=== PATIENT | female | born 1930 | race Caucasian/White ===

== ENCOUNTER 2017-02-12 16:21 | Observation (INO) ==
[2017-02-12] MEDS ORDERED: Ipratropium/Albuterol Neb 3 ML IH ONE (16:37)
--- NOTE | 2017-02-12 16:39 | Emergency Department Note ---
Disposition Clinical Impression: Lung mass Congestive heart failure Qualifiers: Congestive heart failure type: unspecified congestive heart failure type Congestive heart failure chronicity: acute Qualified Code(s): I50.9 - Heart failure, unspecified Disposition: Admitted As Inpatient Condition: Good Referrals: Latoya Oh CNP [Primary Care Provider] - Forms: ED Satisfaction Letter Time of Disposition: 19:46 General Adult HPI - General Chief complaint: ED Shortness of Breath/Dyspnea Stated complaint: Feet are swelling Time Seen by Provider: 02/12/17 16:29 Source: patient Mode of arrival: private vehicle Limitations: no limitations Nursing Notes Reviewed: Yes Vital Signs Reviewed: Yes - History of Present Illness HPI Narrative: 86-year-old female with past medical history of COPD presents with chief complaint of worsening lower extremity edema and shortness of breath increased over her baseline over the last few days. She has history of mild pedal edema over the last month, but it has been significantly worse over the last few days and is worse on the left side as compared to the right. This is associated with fevers pain. Her cough is productive of white sputum which is her baseline. She has no associated fevers, headache, confusion, chest pain, abdominal pain, changes in urination or bowel movements, nausea or vomiting, rashes. No history of injury, recent illness or immobilization. No history of DVT or PE. She has a history of CVA and takes aspirin 81 mg daily. She admits to continued tobacco abuse and smokes 1.5 packs per day. She wears oxygen 3.5 L at home. Pain Scale: 7 - Related Data Allergies Allergy/AdvReac Type Severity Reaction Status Date / Time Penicillins Allergy Rash Verified 02/12/17 16:23 All systems ED: reviewed and negative except as stated. Past Medical History - Past Medical History Attestation: Yes The following information was validated with the patient. Source: patient Medical history: Reports: cancer, CHF, COPD, hypertension, TIA Psychiatric history: Reports: anxiety - Social History Smoking Status: Current every day smoker Alcohol use: Reports: none Drug use: Reports: none Physical Exam - Head Head exam: atraumatic, normocephalic, normal inspection - Eye Eye exam: Present: normal appearance, PERRL, EOMI - ENT ENT exam: normal exam, normal oropharynx, mucous membranes moist - Neck Neck exam: Present: normal inspection, full ROM, trachea midline - Chest Chest inspection: Present: normal inspection, symmetric chest wall rise - Respiratory Patient has diffuse wheezing with good air movement throughout. No respiratory distress. Cardiovascular Cardiovascular exam: Present: regular rate, normal rhythm, normal heart sounds - Abdominal Exam Abdominal exam: Present: soft, Non-Tender. Absent: tenderness, distention, guarding, rebound, rigidity - Extremities Exam There is diffuse pitting pedal edema bilaterally that is worse on the left than the right. There is diffuse tenderness to palpation of the skin with no definite calf tenderness bilaterally. - Back Exam Back exam: Present: normal inspection, full ROM. Absent: tenderness, CVA tenderness (R), CVA tenderness (L) - Neurological Exam Neurological exam: Present: alert, oriented X3, CN II-XII intact - Psychiatric Psychiatric exam: Present: normal affect, normal mood - Skin Skin exam: Present: warm, dry, intact, normal color - General Limitations: no limitations General appearance: alert, in distress Course - Reevaluation(s) Reevaluation #1: Patient with significant pedal edema and moderately elevated BNP. She was given 40 mg of IV Lasix here. She was also found to have lung mass concerning for malignancy. She will be admitted for further evaluation of possible congestive heart failure in the lung mass. Accepted by Dr. Velez. Time: 19:47 Vital Signs Temperature 99.7 F H 02/12/17 16:23 Pulse Rate 83 02/12/17 16:23 Respiratory Rate 18 02/12/17 16:23 Blood Pressure 127/61 02/12/17 16:23 O2 Sat by Pulse Oximetry 91 02/12/17 16:23 Temperature 99.7 F H 02/12/17 16:23 Pulse Rate 83 02/12/17 16:23 Respiratory Rate 18 02/12/17 17:59 Blood Pressure 127/61 02/12/17 16:23 O2 Sat by Pulse Oximetry 94 02/12/17 17:59 Oxygen Delivery Oxygen Delivery Room Air Medical Decision Making - Lab Data Result diagrams: 02/12/17 12:00 02/12/17 12:00 Lab Results 02/12/17 02/12/17 02/12/17 Range/Units 12:00 12:00 12:00 WBC 11.7 H (4.3-11.1) K/mcL RBC 4.79 (3.82-4.97) M/mcL Hgb 10.0 L (11.5-15.4) g/dL Hct 34.2 L (35.3-44.9) % MCV 71.4 L (83.0-100.0) fL MCH 20.9 L (28.0-33.3) pg MCHC 29.2 L (31.6-35.5) g/dL RDW 16.1 H (11.5-14.5) % Plt Count 417 H (140-400) K/mcL MPV 8.8 L (9.4-12.4) fL Immature Gran % 0.5 (0-4) % Seg Neutrophils % 74.5 % Lymphocytes % 7.8 % Monocytes % 10.1 % Eosinophils % 6.4 % Basophils % 0.7 % Neutrophils # 8.7 (1.6-8.9) K/mcL Lymphocytes # 0.9 (0.6-4.6) K/mcL Monocytes # 1.2 (0.0-1.3) K/mcL Eosinophils # 0.8 H (0.0-0.6) K/mcL Basophils # 0.1 (0.0-0.2) K/mcL Sodium 134 L (136-145) mEq/L Potassium 4.2 (3.5-4.5) mEq/L Chloride 99 (98-109) mEq/L Carbon Dioxide 27 (19-29) mEq/L BUN 13 (7-20) mg/dL Creatinine 1.07 (0.57-1.11) mg/dL Est GFR ( Amer) 59 L (> 60) Est GFR (Non-Af Amer) 49 L (> 60) BUN/Creatinine Ratio 12 (6-26) Glucose 120 H (70-99) mg/dL Calculated Osmolality 279 L (280-300) Calcium 9.0 (8.6-10.8) mg/dL Troponin I 0.02 (0-0.03) ng/mL B-Natriuretic Peptide (0-100) pg/mL Urine Color (Yellow) Urine Clarity (Clear) Urine pH (5.0-8.0) pH Units Ur Specific [place] (1.010-1.025) Urine Protein (Neg-Trace) mg/dL Urine Glucose (UA) (Normal) mg/dL Urine Ketones (Negative) mg/dL Urine Blood (Negative) Urine Nitrite (Negative) Urine Bilirubin (Negative) Urine Urobilinogen (Normal) mg/dL Ur Leukocyte Esterase (Negative) Urine Microscopic RBC (0-3) per hpf Urine Microscopic WBC (0-3) per hpf Ur Squamous Epith Cells (None-Few) per lpf Urine Bacteria (None-Few) per hpf Hyaline Casts (None-Few) per lpf Ur Culture Indicated? (NO) 02/12/17 02/12/17 Range/Units 12:00 17:43 WBC (4.3-11.1) K/mcL RBC (3.82-4.97) M/mcL Hgb (11.5-15.4) g/dL Hct (35.3-44.9) % MCV (83.0-100.0) fL MCH (28.0-33.3) pg MCHC (31.6-35.5) g/dL RDW (11.5-14.5) % Plt Count (140-400) K/mcL MPV (9.4-12.4) fL Immature Gran % (0-4) % Seg Neutrophils % % Lymphocytes % % Monocytes % % Eosinophils % % Basophils % % Neutrophils # (1.6-8.9) K/mcL Lymphocytes # (0.6-4.6) K/mcL Monocytes # (0.0-1.3) K/mcL Eosinophils # (0.0-0.6) K/mcL Basophils # (0.0-0.2) K/mcL Sodium (136-145) mEq/L Potassium (3.5-4.5) mEq/L Chloride (98-109) mEq/L Carbon Dioxide (19-29) mEq/L BUN (7-20) mg/dL Creatinine (0.57-1.11) mg/dL Est GFR ( Amer) (> 60) Est GFR (Non-Af Amer) (> 60) BUN/Creatinine Ratio (6-26) Glucose (70-99) mg/dL Calculated Osmolality (280-300) Calcium (8.6-10.8) mg/dL Troponin I (0-0.03) ng/mL B-Natriuretic Peptide 197 H (0-100) pg/mL Urine Color Yellow (Yellow) Urine Clarity Cloudy A (Clear) Urine pH 5.5 (5.0-8.0) pH Units Ur Specific [place] 1.021 (1.010-1.025) Urine Protein Trace (Neg-Trace) mg/dL Urine Glucose (UA) Normal (Normal) mg/dL Urine Ketones Trace H (Negative) mg/dL Urine Blood Negative (Negative) Urine Nitrite Negative (Negative) Urine Bilirubin Small H (Negative) Urine Urobilinogen Normal (Normal) mg/dL Ur Leukocyte Esterase Small H (Negative) Urine Microscopic RBC 0-3 (0-3) per hpf Urine Microscopic WBC 5-15 H (0-3) per hpf Ur Squamous Epith Cells Many H (None-Few) per lpf Urine Bacteria Moderate H (None-Few) per hpf Hyaline Casts Moderate H (None-Few) per lpf Ur Culture Indicated? YES A (NO) - EKG Data EKG #1 EKG attestation: Yes I reviewed and interpreted this EKG. EKG results narrative: EKG shows normal sinus rhythm at 81 with normal axis and intervals. No ST elevation or depression. No T-wave inversions. There is diffuse nonspecific T- wave flattening. No old EKG available for comparison. Attestation Statement - Attestation Attestation: I examined this patient and my medical decision-making was reviewed with the SAIL LAY OUT WORKER/PA/Advanced Practice Nurse/Resident Physician. I agree with the documented findings, disposition and treatment plan as described except to the extent set forth below.
[2017-02-12 17:11] LABS: Basophils # 0.1 K/mcL (0.0-0.2); Basophils % 0.7 %; Eosinophils # 0.8 K/mcL (0.0-0.6); Eosinophils % 6.4 %; Hematocrit 34.2 % (35.3-44.9); Immature Granulocytes % 0.5 % (0-4); Lymphocytes # 0.9 K/mcL (0.6-4.6); Lymphocytes % 7.8 %; Mean Corpuscular HGB Conc 29.2 g/dL (31.6-35.5); Mean Corpuscular Hemoglobin 20.9 pg (28.0-33.3); Mean Corpuscular Volume 71.4 fL (83.0-100.0); Mean Platelet Volume 8.8 fL (9.4-12.4); Monocytes # 1.2 K/mcL (0.0-1.3); Monocytes % 10.1 %; Neutrophils # 8.7 K/mcL (1.6-8.9); Platelet Count 417 K/mcL (140-400); Red Blood Count 4.79 M/mcL (3.82-4.97); Red Cell Distribution Width 16.1 % (11.5-14.5); Segmented Neutrophils % 74.5 %
[2017-02-12 17:21] LABS: Potassium 4.2 mEq/L (3.5-4.5)
[2017-02-12 18:00] LABS: Bilirubin,Urine Small (Negative); Blood,Urine Negative (Negative); Clarity,Urine Cloudy (Clear); Color,Urine Yellow (Yellow); Glucose,Urine (UA) Normal (Normal); Ketones,Urine Trace mg/dL (Negative); Leukocyte Esterase,Urine Small (Negative); Nitrite,Urine Negative (Negative); PH,Urine 5.5 pH Units (5.0-8.0); Protein,Urine Trace mg/dL (Neg-Trace); Specific Gravity,Urine 1.021 (1.010-1.025); Urobilinogen,Urine Normal (Normal)
[2017-02-12 18:12] LABS: Hyaline Casts,Urine Moderate per lpf (None-Few); Squamous Epithelial Cell,Urine Many per lpf (None-Few)
[2017-02-12 18:13] LABS: Bacteria,Urine Moderate per hpf (None-Few); RBC,Urine 0-3 per hpf (0-3)
[2017-02-12] MEDS ORDERED: Naloxone 0.4 MG/ML INJ IVP PRN (22:23)
[2017-02-12] MEDS ORDERED: *HR* OxyCODONE Immed Rel 5 MG TABLET PO PRN (22:23)
[2017-02-12] MEDS ORDERED: Ondansetron 4 MG/2 ML VIAL IVP PRN (22:23)
[2017-02-12] MEDS ORDERED: Acetaminophen 325 MG TABLET PO PRN (22:23)
[2017-02-12] MEDS ORDERED: Albuterol 2.5 MG/3 ML NEBULIZER IH PRN (22:25)
--- NOTE | 2017-02-12 23:27 | Internal Med History&Physical ---
<Andrew Lake - Last Filed: 02/12/17 23:32> Date of Encounter: 02/12/17 Time of Encounter: 23:23 Assessment and Plan (1) Lower extremity edema Current visit: Yes Status: Acute Patient presents with bilateral lower extremity edema. Appears equal on exam to me her ear noted that the left appeared greater than the right so lower extremity Doppler of the left lower extremity was performed and negative. Most likely related to right heart failure in the setting of severe COPD. Patient's respiratory status is stable this time. We will obtain echo. Strict I's and O' s, fluid restriction, daily weights. We will hold off on diuresis at this time. Qualifiers: Laterality: bilateral Qualified Code(s): R60.0 - Localized edema (2) Lung mass Current visit: Yes Status: Acute Found incidentally on chest x-ray and further characterized on CT scan as a left masslike consolidation concerning for necrotic lymphadenopathy versus perihilar mass. Given the patient's smoking history there is concern for primary malignancy of the lung. I discussed at length with the patient the findings of the CT scan and potential etiologies of findings including cancer, infectious, inflammatory disorders. I explained the risks and benefits of further workup including bronchoscopy and discussed that once we had a diagnosis patient was treated. Patient verbalized that she understood our discussion including the risks and benefits of the procedure and risks and benefits of ultimate diagnosis for treatment planning and the patient declined any further workup at this time. I also discussed CODE STATUS with the patient and she was adamant that she wanted to remain a full code at this time. (3) COPD (chronic obstructive pulmonary disease) Current visit: Yes Status: Acute Stable. No evidence of acute exacerbation. Continue home respiratory treatments Qualifiers: COPD type: unspecified COPD Qualified Code(s): J44.9 - Chronic obstructive pulmonary disease, unspecified (4) Hypertension Current visit: Yes Status: Acute Stable. Continue home medications. Qualifiers: Hypertension type: essential hypertension Qualified Code(s): I10 - Essential (primary) hypertension (5) Chronic pain Current visit: Yes Status: Acute Patient reports that this is due to "aneurysms" in her brain negative for headaches. No neurologic findings present. Continue oxycodone 5 mg 3 times a day when necessary Qualifiers: Chronic pain type: other chronic pain Qualified Code(s): G89.29 - Other chronic pain (6) Rheumatoid arthritis Current visit: Yes Status: Acute Patient reports history of rheumatoid arthritis and states that she takes prednisone 5 mg daily to help control her symptoms. Patient does have some pain in her hands but feels that this is at her baseline. Continue prednisone 5 mg daily. Qualifiers: Rheumatoid arthritis location: unspecified site Rheumatoid factor presence : unspecified presence Qualified Code(s): M06.9 - Rheumatoid arthritis, unspecified (7) DVT prophylaxis Current visit: Yes Status: Acute Heparin 5000 units subcutaneous twice a day Internal Medicine - H&P: HPI Chief complaint: Lower extremity swelling Admitted From: Emergency Dept Plans for Post Hospital Care: Home History of present illness: Ms. Conrad is a 86 year old female with history of COPD, rheumatoid arthritis presents with lower extremity swelling. Patient states is gradually worsened over the last several days. Patient said she has never had anything like this before. She denies chest pain. Patient states that she has shortness of breath but she has had shortness of breath for a long period of time due to her COPD and her shortness of breath is unchanged. Patient states she recently cut back her fluid intake has been urinating less. She denies fever, chills, abdominal pain, nausea, vomiting, diarrhea, dysuria. Past Med Surg Social Fam HX - Past Medical History Medical history: cancer, CHF, COPD, hypertension, TIA Psychiatric history: anxiety - Past Surgical History Surgical History: non-contributory - Social History Smoking Status: Current every day smoker Alcohol use: none Drug use: none - Family History Mother History Unknown: Yes Father Hx Family Cardiac Disorders: Yes ( from [place]) Internal Medicine - H&P: Meds Albuterol Neb [Proventil Neb] 2.5 mg IH TID PRN 02/12/17 [History] Albuterol Sulfate [Albuterol Inhaler] 2 puff IH Q4H PRN 02/12/17 [History] Aspirin Enteric Coated [Aspirin EC] 81 mg PO DAILY 02/12/17 [History] B Complex with Vitamin C [Melanie-Bee with C] 1 each PO DAILY 02/12/17 [History] Calcium/Magnesium [Calcium with Magnesium Tab] 1 each PO DAILY 02/12/17 [History ] Cyanocobalamin (Vitamin B-12) [Vitamin B-12] 100 mcg PO DAILY 02/12/17 [History] Diltiazem HCl [Diltiazem 24Hr Cd] 180 mg PO DAILY 02/12/17 [History] Fluticasone Propionate Nasal [Flonase] 50 mcg NS BID PRN 02/12/17 [History] Fluticasone/Salmeterol [Advair Hfa 115-21 Mcg Inhaler] 2 puff IH BID 02/12/17 [ History] Metoprolol [Lopressor] 25 mg PO BID 02/12/17 [History] Multivitamin [Multi-Day Vitamins] 1 each PO DAILY 02/12/17 [History] OxyCODONE Immed Rel [Roxicodone 5 MG] 5 mg PO Q8HR PRN 02/12/17 [History] Oxygen 3.5 l NS AD 02/12/17 [History] Simvastatin [Zocor] 20 mg PO HS 02/12/17 [History] predniSONE [PredniSONE] 5 mg PO DAILY 02/12/17 [History] Allergies Penicillins Allergy (Verified 02/12/17 16:23) Rash All Systems PM: A 10-system review of systems was performed and is negative for pertinent findings except as documented above in the HPI. - Constitutional Vitals: Temp Pulse Resp BP Pulse Ox 97.7 F 72 17 146/73 92 02/12/17 21:20 02/12/17 21:20 02/12/17 21:20 02/12/17 21:20 02/12/17 21:20 General appearance: Present: A&O X 3, pleasant, no acute distress - Head Head exam: Present: atraumatic, normal inspection, normocephalic - Eye Eye exam: Present: EOMI, PERRL - ENT ENT exam: Present: mucous membranes dry - Neck Neck exam general surgery: Present: supple. Absent: tenderness - Respiratory Respiratory exam: Present: wheezes (Rare end expiratory wheeze). Absent: rales , respiratory distress, rhonchi, tachypnea - Cardiovascular Cardiovascular exam: Present: RRR. Absent: gallop, rubs, systolic murmur - GI/Abdominal GI/Abdominal exam: Present: normal bowel sounds, soft. Absent: distended, tenderness - Extremities Exam Extremities exam: Present: pedal edema (2+ bilaterally), warm, radial pulses palpable and symetrical. Absent: tenderness - Neurological Exam Neurological exam: Present: alert, CN II-XII intact, oriented X3, no focal deficits - Psychiatric Psychiatric exam: Present: normal affect, normal mood - Skin Skin exam: Present: dry, intact, warm Internal Med - H&P Results - Labs CBC & Chem 7: 02/12/17 12:00 02/12/17 12:00 <Riki Buchanan - Last Filed: 02/13/17 00:25> Date of Encounter: 02/13/17 Internal Medicine - H&P: HPI History of present illness: Ms. Conrad is a 86 year old female All Systems PM: A 10-system review of systems was performed and is negative for pertinent findings except as documented above in the HPI. - Constitutional Vitals: Temp Pulse Resp BP Pulse Ox 98.1 F 85 16 132/66 93 02/12/17 23:55 02/12/17 23:55 02/12/17 23:55 02/12/17 23:55 02/12/17 23:55 Internal Med - H&P Results - Labs CBC & Chem 7: 02/12/17 12:00 02/12/17 12:00 - Attending Attestation I examined this patient and my medical decision-making was reviewed with Dr. Lake. I agree with the documented findings, disposition and treatment plan as described except to the extent set forth below. 86 yo CF who presented to ER with leg swelling in both legs and chronic shortness of breath was found to have abnormal CXR and found to have a new lung mass. Patient reports that she uses inhalers at home and does not want any further work up of her lung mass. On exam, bilateral diffuse expiratory wheezing. Not in any acute distress. Bilateral 2+ bilateral pitting pedal edema. Labs reviewed. CXR personally reviewed - tracheal shift to the right; mild left CP angle blunting CT chest personally reviewed - Mass in the left hilar region; Left pleural effusion A/P: 1. Leg swelling likely related to Cor pulmonale - ECHO. Diuresis. Likely discharge home tomorrow. Observation status for now. 2. New lung mass with concern for malignancy with her extensive smoking history - Pt. states that she does not want any work up. Will treat symptomatically. 3. COPD with mild exacerbation - Antibiotics. Continue steroids at current dose. Breathing treatments. 4. Rheumatoid arthritis 5. Essential HTN MICHEL Baca
[2017-02-13] MEDS ORDERED: Furosemide 40 MG/4 ML VIAL IVP ONE (00:26)
[2017-02-13 04:45] LABS: Basophils # 0.1 K/mcL (0.0-0.2); Basophils % 0.5 %; Eosinophils # 0.8 K/mcL (0.0-0.6); Eosinophils % 7.3 %; Hematocrit 32.6 % (35.3-44.9); Hemoglobin 9.7 g/dL (11.5-15.4); Immature Granulocytes % 0.5 % (0-4); Lymphocytes % 8.6 %; Mean Corpuscular HGB Conc 29.8 g/dL (31.6-35.5); Mean Corpuscular Hemoglobin 21.3 pg (28.0-33.3); Mean Corpuscular Volume 71.5 fL (83.0-100.0); Monocytes # 1.1 K/mcL (0.0-1.3); Monocytes % 9.7 %; Neutrophils # 8.1 K/mcL (1.6-8.9); Platelet Count 431 K/mcL (140-400); Red Blood Count 4.56 M/mcL (3.82-4.97); Red Cell Distribution Width 16.4 % (11.5-14.5); Segmented Neutrophils % 73.4 %
[2017-02-13 04:54] LABS: Calcium 9.3 mg/dL (8.6-10.8); Chol/HDL Ratio 2.3 (0-4.9); Magnesium 1.7 mg/dL (1.6-2.6); Potassium 3.7 mEq/L (3.5-4.5)
[2017-02-13] MEDS: *HR* Heparin 5,000 UNIT/ML VIAL SQ SCH ×2 (05:43→16:55)
[2017-02-13] MEDS ORDERED: Doxycycline 100 MG CAPSULE PO SCH (09:00)
[2017-02-13] MEDS: Aspirin Enteric Coated 81 MG Tablet PO SCH (09:29)
[2017-02-13] MEDS: Diltiazem CD (24hr) 180 MG CAPSULE PO SCH (09:30)
[2017-02-13] MEDS: predniSONE 5 MG TABLET PO SCH (09:30)
[2017-02-13] MEDS: Budesonide/Formoterol 160/4.5 MDI IH SCH ×2 (10:22→21:41)
--- NOTE | 2017-02-13 12:35 | Electrocardiograph Report ---
[address] [address] Test Date: 2017-02-12 Pat Name: Patricia Conrad Department: 102 Room: 2A33 Gender: F Car Salter: Nena : 1930 Requested By: Chino Mcdonough Order Number: [id number] Reading MD: Marilyn Herrera Measurements Intervals Goff Rate: 81 P: 69 MA: 183 QRS: 0 QRSD: 90 T: 11 QT: 356 QTc: 393 Interpretive Statements SINUS RHYTHM LOW QRS VOLTAGE IN EXTREMITY LEADS [QRS DEFLECTION < 0.5 mV IN LIMB LEADS] SEPTAL MYOCARDIAL INFARCTION [40+ ms Q WAVE IN V1/V2], PROBABLY OLD Electronically Signed On 02-13-2017 12:34:00 EDT by Marilyn Herrera
[2017-02-13] MEDS ORDERED: *HR* OxyCODONE Immed Rel 5 MG TABLET PO PRN (14:47)
--- NOTE | 2017-02-13 16:02 | Internal Med Progress Note ---
Date of Encounter: 02/13/17 Time of Encounter: 16:00 - Assessment and plan (1) UTI (urinary tract infection) Current Visit: Yes Status: Acute Assessment and plan: Will start Ceftriaxone 1gm IV qd treat for symptomatic UTI for total of 3-5 days depending on clinical response Qualifiers: Urinary tract infection type: acute cystitis Hematuria presence: without hematuria Qualified Code(s): N30.00 - Acute cystitis without hematuria (2) Congestive heart failure Current Visit: Yes Status: Acute Assessment and plan: 2D echo reports of LVEF of 60-65% with mild LV diastolic dysfunction, mild LVH, mild to moderate aortic regurgitation continue IV diuretics monitor daily weight, I/Os fluid restricted diet O2 supplementation as needed Qualifiers: Congestive heart failure type: diastolic Congestive heart failure chronicity: acute Qualified Code(s): I50.31 - Acute diastolic (congestive) heart failure (3) Lung mass Current Visit: Yes Status: Acute Assessment and plan: Patient does not want any further work up at this time she states she is 86 years of age and just want her breathing to improve along with her Lower extremity edema patient willing to quit smoking at this time refused nicotine replacement therapy (4) Lower extremity edema Current Visit: Yes Status: Acute Assessment and plan: LLE venous doppler negative for DVT Qualifiers: Laterality: bilateral Qualified Code(s): R60.0 - Localized edema (5) COPD (chronic obstructive pulmonary disease) Current Visit: Yes Status: Chronic Assessment and plan: not in acute exacerbation continue home meds monitor O2 sat O2 supplementation as needed Qualifiers: COPD type: unspecified COPD Qualified Code(s): J44.9 - Chronic obstructive pulmonary disease, unspecified (6) Hypertension Current Visit: Yes Status: Acute Assessment and plan: BP within acceptable range continue home meds Qualifiers: Hypertension type: essential hypertension Qualified Code(s): I10 - Essential (primary) hypertension (7) DVT prophylaxis Current Visit: Yes Status: Acute Assessment and plan: Heparin SQ - Subjective Interval history: Patient seen and examined at bedside. Resting in bed and reports of mild discomfort with her breathing which is improved since her admission. Also reports of difficulty urinating. complains of increased urinary frequency and urgency. UA concerning for UTI, however given current presentation, will place samayoa cath. Patient states she does not want any further work up for her CXR findings. Willing to quit smoking after discharge. Appoints her niece as her POA. - Constitutional Vitals: Temp Pulse Resp BP Pulse Ox 98.4 F 74 16 132/69 97 02/13/17 11:56 02/13/17 11:56 02/13/17 11:56 02/13/17 11:56 02/13/17 11:56 General appearance: Present: A&O X 3, pleasant, no acute distress - Head Head exam: Present: atraumatic, normocephalic - Eye Eye exam: Present: normal appearance, conjuntiva pink, sclera anicteric - Respiratory Respiratory exam: Absent: respiratory distress Additional comments: bibasilar crackles - Cardiovascular Cardiovascular exam: Present: RRR, +S1, +S2. Absent: diastolic murmur, gallop, rubs, systolic murmur - GI/Abdominal GI/Abdominal exam: Present: normal bowel sounds, soft, no peritoneal signs. Absent: distended, tenderness - Extremities Exam Extremities exam: Present: warm, radial pulses palpable and symetrical Additional comments: LLE tenderness and bilateral LE edema - Neurological Exam Neurological exam: Present: alert, oriented X3 - Psychiatric Psychiatric exam: Present: normal affect, normal mood Internal Medicine: Result - Labs CBC & Chem 7: 02/13/17 03:46 02/13/17 03:46 Labs: Short CBC 02/13/17 Range/Units 03:46 WBC 11.0 (4.3-11.1) K/mcL Hgb 9.7 L (11.5-15.4) g/dL Hct 32.6 L (35.3-44.9) % Plt Count 431 H (140-400) K/mcL Neutrophils # 8.1 (1.6-8.9) K/mcL BMP 02/13/17 03:46 Sodium 135 L Potassium 3.7 Chloride 98 Carbon Dioxide 29 BUN 11 Creatinine 1.07 Glucose 123 H Calcium 9.3 - VTE Documentation of Mechanical Device: Graduated compression elastic hosiery Consult Discharge Plan - Plan Referrals: Latoya Oh CNP [Primary Care Provider] - (Web Requested 02-12-17)
[2017-02-13] MEDS: Furosemide 40 MG/4 ML VIAL IVP SCH (16:54)
[2017-02-14 03:27] LABS: Basophils % 0.3 %; Eosinophils # 0.4 K/mcL (0.0-0.6); Eosinophils % 3.8 %; Hematocrit 35.5 % (35.3-44.9); Hemoglobin 10.6 g/dL (11.5-15.4); Immature Granulocytes % 0.4 % (0-4); Lymphocytes # 1.2 K/mcL (0.6-4.6); Lymphocytes % 10.5 %; Mean Corpuscular HGB Conc 29.9 g/dL (31.6-35.5); Mean Corpuscular Hemoglobin 21.3 pg (28.0-33.3); Mean Corpuscular Volume 71.4 fL (83.0-100.0); Mean Platelet Volume 9.3 fL (9.4-12.4); Monocytes # 1.1 K/mcL (0.0-1.3); Monocytes % 9.4 %; Neutrophils # 8.7 K/mcL (1.6-8.9); Platelet Count 460 K/mcL (140-400); Red Blood Count 4.97 M/mcL (3.82-4.97); Red Cell Distribution Width 16.1 % (11.5-14.5); Segmented Neutrophils % 75.6 %
[2017-02-14 03:37] LABS: Calcium 9.6 mg/dL (8.6-10.8); Magnesium 1.9 mg/dL (1.6-2.6); Phosphorous 2.7 mg/dL (2.3-4.7); Potassium 3.5 mEq/L (3.5-4.5)
[2017-02-14] MEDS: *HR* Heparin 5,000 UNIT/ML VIAL SQ SCH ×2 (04:45→16:47)
[2017-02-14] MEDS: predniSONE 5 MG TABLET PO SCH (07:41)
[2017-02-14] MEDS: Aspirin Enteric Coated 81 MG Tablet PO SCH (07:41)
[2017-02-14] MEDS: Diltiazem CD (24hr) 180 MG CAPSULE PO SCH (07:41)
[2017-02-14] MEDS: Furosemide 40 MG/4 ML VIAL IVP SCH (07:44)
[2017-02-14] MEDS: Budesonide/Formoterol 160/4.5 MDI IH SCH (08:06)
--- NOTE | 2017-02-14 10:07 | Discharge Summary ---
Date of Encounter: 02/14/17 Time of Encounter: 10:05 - Discharge Diagnosis (1) UTI (urinary tract infection) Priority: Primary Status: Acute Qualifiers: Urinary tract infection type: acute cystitis Hematuria presence: without hematuria Qualified Code(s): N30.00 - Acute cystitis without hematuria (2) Congestive heart failure Priority: Primary Status: Acute Qualifiers: Congestive heart failure type: diastolic Congestive heart failure chronicity: acute Qualified Code(s): I50.31 - Acute diastolic (congestive) heart failure (3) Lung mass Priority: Secondary Status: Acute (4) Lower extremity edema Priority: Primary Status: Acute Qualifiers: Laterality: bilateral Qualified Code(s): R60.0 - Localized edema (5) COPD (chronic obstructive pulmonary disease) Priority: Secondary Status: Chronic Qualifiers: COPD type: unspecified COPD Qualified Code(s): J44.9 - Chronic obstructive pulmonary disease, unspecified (6) Hypertension Priority: Secondary Status: Chronic Qualifiers: Hypertension type: essential hypertension Qualified Code(s): I10 - Essential (primary) hypertension (7) DVT prophylaxis Priority: Secondary Status: Acute (8) Atrial fibrillation Priority: Secondary Status: Acute Qualifiers: Atrial fibrillation type: unspecified Qualified Code(s): I48.91 - Unspecified atrial fibrillation - Discharge Medications Prescriptions: Ciprofloxacin/Ciprofloxa HCl [Cipro Xr 500 mg Tablet] 500 mg PO DAILY #1 tbmp.24hr Ferrous Sulfate 325 mg PO DAILY@0800 #30 tablet Furosemide [Lasix] 40 mg PO BIDDIURETIC #60 tablet Sennosides/Docusate Sodium [Senna Plus] 2 each PO BID PRN #30 tablet PRN Reason: Constipation Home Medications: Albuterol Neb [Proventil Neb] 2.5 mg IH TID PRN 02/12/17 [History] Albuterol Sulfate [Albuterol Inhaler] 2 puff IH Q4H PRN 02/12/17 [History] Aspirin Enteric Coated [Aspirin EC] 81 mg PO DAILY 02/12/17 [History] B Complex with Vitamin C [Melanie-Bee with C] 1 each PO DAILY 02/12/17 [History] Calcium/Magnesium [Calcium with Magnesium Tab] 1 each PO DAILY 02/12/17 [History ] Cyanocobalamin (Vitamin B-12) [Vitamin B-12] 100 mcg PO DAILY 02/12/17 [History] Diltiazem HCl [Diltiazem 24Hr Cd] 180 mg PO DAILY 02/12/17 [History] Fluticasone Propionate Nasal [Flonase] 50 mcg NS BID PRN 02/12/17 [History] Fluticasone/Salmeterol [Advair Hfa 115-21 Mcg Inhaler] 2 puff IH BID 02/12/17 [ History] Metoprolol [Lopressor] 25 mg PO BID 02/12/17 [History] Multivitamin [Multi-Day Vitamins] 1 each PO DAILY 02/12/17 [History] OxyCODONE Immed Rel [Roxicodone 5 MG] 5 mg PO Q8HR PRN 02/12/17 [History] Oxygen 3.5 l NS AD 02/12/17 [History] Simvastatin [Zocor] 20 mg PO HS 02/12/17 [History] predniSONE [PredniSONE] 5 mg PO DAILY 02/12/17 [History] Ciprofloxacin/Ciprofloxa HCl [Cipro Xr 500 mg Tablet] 500 mg PO DAILY #1 tbmp.24hr 02/14/17 [Rx] Ferrous Sulfate 325 mg PO DAILY@0800 #30 tablet 02/14/17 [Rx] Furosemide [Lasix] 40 mg PO BIDDIURETIC #60 tablet 02/14/17 [Rx] Sennosides/Docusate Sodium [Senna Plus] 2 each PO BID PRN #30 tablet 02/14/17 [ Rx] Allergies/Adverse Reactions: Allergies Penicillins Allergy (Verified 02/12/17 16:23) Rash Procedures/tests Complete & Pending: Procedures Performed prior 72 hours Category Date Time Status ECG 12 lead ECG [ECG] Routine Y 02/14/17 05:11 Completed EV echocardiogram Routine Y 02/13/17 22:25 Completed Date of admission: 02/12/17 20:06 Primary care physician: Latoya Oh CNP Consults: 02/13/17 10:04 Consult to Physical Therapy [CONS] Routine Comment: Evaluate, develop and implement POC Reason for Consult: possible need for therapy 02/13/17 11:09 Consult to Occupational Therapy [CONS] Routine Comment: Evaluate, develop and implement POC Reason for Consult: possible home health needs Discharging clinician: Zenobia Biswas Anticipated date of discharge: 02/14/17 - Patient Status Disposition: Home Health Service Condition: Good Functional capacity at discharge: uses cane/walker Overall status at discharge: patient is back to baseline - Discharge Instructions Follow Up With: Latoya Oh CNP [Primary Care Provider] - (Web Requested 02-12-17) Additional Instructions: Please follow up with your primary care physician within five days after your discharge from the hospital. Please follow up with quick print operator within one to two weeks after your discharge from the hospital. Lasix 40mg twice a day has been added to your home meds, please inform your primary care physician of this change. You were found to have iron deficiency anemia due to which Ferrous sulfate ( iron supplement) has been added to your home meds Continue Aspirin, Metoprolol, and Cardizem in addition to all your other home medications as prescribed by your primary care physician. continue oral antibiotics for one more day as prescribed. Smoking cessation is highly advised - Diet and Activity Activity: as per physical therapy, wear oxygen at all times Diet: low salt diet Hospital course: Ms. Conrad is a 86 year old female with PMH of COPD on LTOT, HTN, Afib, RA who was admitted for management of worsening lower extremity edema bilaterally. Pt is a poor historian and unclear of her medical history. She is compliant with her home meds and states her niece and nephew take care of her. She was started on IV diuretics and had a 2D echo done which reported presereved ejection fraction mild diastolic dysfunction. Patient's LE edema and respiratory status improved with lasix. Pt was also reported to have a perihilar mass concerning for malignancy. Pt refused any further work up for this mass. She was also noted to be in rate control afib which was a change from her initial admission EKG. Given her CHADVASC score cardiology was consulted for anticoagulation. Given her age/frail clinical status and concern for malignancy, she is not a candidate for intermediate teacher anticoagulation. She is already on Metoprolol, Aspirin, and Cardizem. It appears that patient may already have history of afib and does not know about it. She also reported of dysuria and was started on IV abx to which she responded appropriately. Physical therapy evaluated the patient and home health was recommended. Pt will be discharged to home with PO lasix, oral abx, and iron supplements as she was found to have iron def anemia. Pt demonstrates understanding of her diagnosis and agrees with the discharge care and plan. - Time Spent with Patient Total time spent providing and/or coordinating discharge services: Greater than 30 minutes - Constitutional Vitals: Temp Pulse Resp BP Pulse Ox 97.7 F 78 20 130/73 91 02/14/17 06:42 02/14/17 06:42 02/14/17 08:10 02/14/17 06:42 02/14/17 08:10 General appearance: Present: A&O X 3, pleasant, no acute distress - Head Head exam: Present: atraumatic, normocephalic - Eye Eye exam: Present: normal appearance, conjuntiva pink, sclera anicteric - Respiratory Respiratory exam: Absent: respiratory distress, wheezes - Cardiovascular Cardiovascular exam: Present: RRR, +S1, +S2. Absent: diastolic murmur, gallop, rubs, systolic murmur - GI/Abdominal GI/Abdominal exam: Present: normal bowel sounds, soft, no peritoneal signs. Absent: distended, tenderness - Extremities Exam Extremities exam: Present: pedal edema (bilateral pitting edema), warm, radial pulses palpable and symetrical. Absent: calf tenderness - Neurological Exam Neurological exam: Present: alert, oriented X3 - Psychiatric Psychiatric exam: Present: normal affect, normal mood - VTE Documentation of Mechanical Device: Graduated compression elastic hosiery
--- NOTE | 2017-02-14 12:48 | Cardiology Consult Note ---
Date of Encounter: 02/14/17 Time of Encounter: 12:44 Assessment and Plan (1) Atrial fibrillation Current Visit: Yes Status: Acute Sinus rhythm on ER ECG, but appears to be AF currently. Patient asymptomatic. Patient has lung mass with lymphadenopathy on chest CT. Declining further evaluation and possible metastatic workup if malignancy. Although CHADS-VASc score is elevation, she is not a good coumadin candidate due to these issues. Recommend continue aspirin and BB therapy. Patient understands and is agreeable to this plan. Followup with me in the clinic. Thanks, Neo Lawson DO, [facility] Qualifiers: Atrial fibrillation type: paroxysmal Qualified Code(s): I48.0 - Paroxysmal atrial fibrillation Discussion w patient/family: The assessment and plan as outlined above was discussed with the patient and/or family members who expressed understanding and agreement. All questions were answered. Thank you for involving us in the care of your patient. Please call with any questions. History of Present Illness Consult date: 02/14/17 Requesting physician: Zenobia Biswas Consult reason: AF Chief complaint: LE edema History of present illness: Ms. Conrad is a 86 year old female shelter smoker, COPD. Lung mass per imaging results - patient declining evaluation. LE edema better. Consultation requesting regarding AF noted on monitor. New diagnosis - no palpitations, near syncope, or syncope. CHADS-VASc (HTN, AGE, FM) elevated. TTE LVEF 60-65%, mild LVH, mild DD, mild to moderate AR. Past Med Surg Social Fam HX - Past Medical History Medical history: cancer, CHF, COPD, hypertension, TIA Psychiatric history: anxiety - Past Surgical History Surgical History: non-contributory - Social History Smoking Status: Current every day smoker Alcohol use: none Drug use: none - Family History Mother History Unknown: Yes Father Hx Family Cardiac Disorders: Yes ( from [place]) Medications and Allergies Albuterol Neb [Proventil Neb] 2.5 mg IH TID PRN 02/12/17 [History] Albuterol Sulfate [Albuterol Inhaler] 2 puff IH Q4H PRN 02/12/17 [History] Aspirin Enteric Coated [Aspirin EC] 81 mg PO DAILY 02/12/17 [History] B Complex with Vitamin C [Melanie-Bee with C] 1 each PO DAILY 02/12/17 [History] Calcium/Magnesium [Calcium with Magnesium Tab] 1 each PO DAILY 02/12/17 [History ] Cyanocobalamin (Vitamin B-12) [Vitamin B-12] 100 mcg PO DAILY 02/12/17 [History] Diltiazem HCl [Diltiazem 24Hr Cd] 180 mg PO DAILY 02/12/17 [History] Fluticasone Propionate Nasal [Flonase] 50 mcg NS BID PRN 02/12/17 [History] Fluticasone/Salmeterol [Advair Hfa 115-21 Mcg Inhaler] 2 puff IH BID 02/12/17 [ History] Metoprolol [Lopressor] 25 mg PO BID 02/12/17 [History] Multivitamin [Multi-Day Vitamins] 1 each PO DAILY 02/12/17 [History] OxyCODONE Immed Rel [Roxicodone 5 MG] 5 mg PO Q8HR PRN 02/12/17 [History] Oxygen 3.5 l NS AD 02/12/17 [History] Simvastatin [Zocor] 20 mg PO HS 02/12/17 [History] predniSONE [PredniSONE] 5 mg PO DAILY 02/12/17 [History] Ciprofloxacin/Ciprofloxa HCl [Cipro Xr 500 mg Tablet] 500 mg PO DAILY #1 tbmp.24hr 02/14/17 [Rx] Ferrous Sulfate 325 mg PO DAILY@0800 #30 tablet 02/14/17 [Rx] Furosemide [Lasix] 40 mg PO BIDDIURETIC #60 tablet 02/14/17 [Rx] Allergies Penicillins Allergy (Verified 02/12/17 16:23) Rash All Systems Review: A 10-system review of systems was performed and is negative for pertinent findings except as documented above in the HPI. - Cardiovascular Cardiovascular: as per HPI Physical Examination Vital Signs, Last 4 Hours Temp Pulse Resp BP Pulse Ox 02/14/17 10:40 97.7 F 69 14 117/56 95 02/14/17 09:54 20 91 General: Conversant, No Apparent Distress HEENT: Atraumatic, Mucus Membranes Moist Neck: No JVD Cardiac: Other (Irregular rate and rhythm, no murmurs appreciated) Lungs: Other (Scattered rhonchi, wheezing) Neuro: Alert and responsive, No focal deficits noted Abdomen: Soft, Non-Tender Skin: No rashes noted on visualized skin Musculoskeletal: No Chest Wall Tenderness Extremities: No Clubbing, No Cyanosis, Other (Minimal edema) Results 02/14/17 03:13 02/14/17 03:13 Lab Results 02/14/17 02/14/17 03:13 03:13 WBC 11.5 H Hgb 10.6 L Hct 35.5 Plt Count 460 H Sodium 137 Potassium 3.5 Chloride 95 L Carbon Dioxide 32 H BUN 12 Creatinine 1.07 Glucose 106 H Calcium 9.6 Magnesium 1.9 - Imaging and Cardiology Echo: report reviewed - EKG Interpretation EKG results cardiology: personally reviewed Consult Discharge Plan - Plan Referrals: Latoya Oh, VINNY [Primary Care Provider] - (Web Requested 02-12-17) Prescriptions: Ciprofloxacin/Ciprofloxa HCl [Cipro Xr 500 mg Tablet] 500 mg PO DAILY #1 tbmp.24hr Ferrous Sulfate 325 mg PO DAILY@0800 #30 tablet Furosemide [Lasix] 40 mg PO BIDDIURETIC #60 tablet
--- NOTE | 2017-02-14 14:08 | Physician Discharge Referral ---
Home Health/Hosp Referral Info Transfer to: Home Health Provider in Charge Post Discharge: PCP - Diagnosis (1) UTI (urinary tract infection) Priority: Secondary Status: Acute (2) Congestive heart failure Priority: Primary Status: Acute (3) Lung mass Priority: Secondary Status: Acute (4) Lower extremity edema Priority: Primary Status: Acute (5) COPD (chronic obstructive pulmonary disease) Priority: Secondary Status: Chronic (6) Hypertension Priority: Secondary Status: Chronic (7) DVT prophylaxis Priority: Secondary Status: Acute (8) Atrial fibrillation Priority: Secondary Status: Chronic - Respiratory Orders Smoking Cessation: Smoking cessation has been advised. For more information, call the [place] Tobacco Quit Line at 0-153-AOUX-NOW. - Services Needed Following services are medically necessary services: Nursing, Home Health Aide, Physical Therapy, Occupational Therapy - Transfer Medications Prescriptions: Ciprofloxacin/Ciprofloxa HCl [Cipro Xr 500 mg Tablet] 500 mg PO DAILY #1 tbmp.24hr Ferrous Sulfate 325 mg PO DAILY@0800 #30 tablet Furosemide [Lasix] 40 mg PO BIDDIURETIC #60 tablet Sennosides/Docusate Sodium [Senna Plus] 2 each PO BID PRN #30 tablet PRN Reason: Constipation Home Medications: Albuterol Neb [Proventil Neb] 2.5 mg IH TID PRN 02/12/17 [History] Albuterol Sulfate [Albuterol Inhaler] 2 puff IH Q4H PRN 02/12/17 [History] Aspirin Enteric Coated [Aspirin EC] 81 mg PO DAILY 02/12/17 [History] B Complex with Vitamin C [Melanie-Bee with C] 1 each PO DAILY 02/12/17 [History] Calcium/Magnesium [Calcium with Magnesium Tab] 1 each PO DAILY 02/12/17 [History ] Cyanocobalamin (Vitamin B-12) [Vitamin B-12] 100 mcg PO DAILY 02/12/17 [History] Diltiazem HCl [Diltiazem 24Hr Cd] 180 mg PO DAILY 02/12/17 [History] Fluticasone Propionate Nasal [Flonase] 50 mcg NS BID PRN 02/12/17 [History] Fluticasone/Salmeterol [Advair Hfa 115-21 Mcg Inhaler] 2 puff IH BID 02/12/17 [ History] Metoprolol [Lopressor] 25 mg PO BID 02/12/17 [History] Multivitamin [Multi-Day Vitamins] 1 each PO DAILY 02/12/17 [History] OxyCODONE Immed Rel [Roxicodone 5 MG] 5 mg PO Q8HR PRN 02/12/17 [History] Oxygen 3.5 l NS AD 02/12/17 [History] Simvastatin [Zocor] 20 mg PO HS 02/12/17 [History] predniSONE [PredniSONE] 5 mg PO DAILY 02/12/17 [History] Ciprofloxacin/Ciprofloxa HCl [Cipro Xr 500 mg Tablet] 500 mg PO DAILY #1 tbmp.24hr 02/14/17 [Rx] Ferrous Sulfate 325 mg PO DAILY@0800 #30 tablet 02/14/17 [Rx] Furosemide [Lasix] 40 mg PO BIDDIURETIC #60 tablet 02/14/17 [Rx] Sennosides/Docusate Sodium [Senna Plus] 2 each PO BID PRN #30 tablet 02/14/17 [ Rx] Allergies/Adverse Reactions: Allergies Penicillins Allergy (Verified 02/12/17 16:23) Rash Certification: Further, I certify that my clinical findings support that this patient is homebound (i.e. absences from home require considerable and taxing effort and are for medical reasons or quaker services or infrequently or short duration when for other reasons) because: Homebound Reason: Patient requires assistance of a person or device to safely leave home Attestation: My signature below is to certify that this patient is under my care and that I, or nurse practitioner, or a physician's family medicine physician assistant working with me, has a face-to -face encounter with this patient.
[2017-02-14 16:42] VITALS: BP 132/73
[2017-02-14] MEDS ORDERED: Furosemide 40 MG TABLET PO SCH (17:00)
--- NOTE | 2017-02-15 09:20 | Venous Imaging Report ---
LE Venous Duplex Patient Name:Patricia Conrad Order Number:[id number] Procedure Date:02/12/2017 Date:2Age:86 yrs Gender:Female Location:[facility] Room #: 2A33 Spinner Hand:Penine Herndon Referring MD:Chino Mcdonough DO station mechanic apprentice:Latoya Oh, PRECISION ASSEMBLER Reading MD:Sylvester Osman MD Primary Indications:Swelling Secondary Indications: Impressions: Left lower extremity: normal superficial and deep exam. Findings Prior Study: No prior study available for comparison. Lower Extremity Venous Duplex Side Vein Compress Spontaneous Flow Augment Diameter (cm) Depth (cm) Left Distal Iliac Normal Yes Phasic Yes Left Common Femoral Normal Yes Phasic Yes Left Superficial Femoral Normal Yes Phasic Yes Left Popliteal Normal Yes Phasic Yes Left Posterior Tibial Normal Yes Phasic Yes Left Peroneal Normal Yes Phasic Yes Left Saphenofemoral [place] Normal Yes Phasic Yes Left Great Saphenous Normal Yes Phasic Yes Left Lesser Saphenous Normal Yes Phasic Yes Right Common Femoral Normal Yes Phasic Yes Updated by Sylvester Osman MD on 02/15/2017 9:16:51 AM electronically signed on 02/15/2017 9:17:13 AM with status of Final
--- NOTE | 2017-02-15 12:49 | Electrocardiograph Report ---
[place] [id number] Test Date: 2017-02-14 Pat Name: Patricia Conrad Department: 112 Room: 2A Gender: F Vegetable Farm Manager: : 1930 Requested By: Zenobia Biswas Order Number: [id number] Reading MD: Andrew Boyle MD Measurements Intervals [place] Rate: 69 P: RI: 0 QRS: 25 QRSD: 110 T: -5 QT: 424 QTc: 444 Interpretive Statements ATRIAL FIBRILLATION LOW QRS VOLTAGE IN EXTREMITY LEADS Electronically Signed On 02-15-2017 12:47:42 EDT by Andrew Boyle MD
--- NOTE | 2017-02-17 06:50 | Electrocardiograph Report ---
[address] [place] [address] Test Date: 2017-02-14 Pat Name: Patricia Conrad Department: 112 Room: 2A Gender: F Cement Finisher Helper: : 1930 Requested By: Neo Lawson Order Number: [id number] Reading MD: Harrison Hermosillo MD Measurements Intervals [place] Rate: 66 P: [place]: 0 QRS: -3 QRSD: 105 T: -22 QT: 434 QTc: 447 Interpretive Statements ATRIAL FIBRILLATION Electronically Signed On 02-17-2017 6:48:58 EDT by Harrison Hermosillo MD
== END 2017-02-14 17:23 | disposition home health service (06) ==
LOC: EMEROO 16:21 → 2ANU 16:21
PROVIDERS: ADMIT Internal Medicine; ATTEND Internal Medicine

== ENCOUNTER 2018-03-10 15:37 | Observation (INO) ==
[2018-03-10] MEDS ORDERED: *HR* FentaNYL (PF) 100 MCG/2 ML VIAL IVP ONE ×3 (16:15→18:30)
[2018-03-10] MEDS ORDERED: Metoclopramide 10 MG/2 ML VIAL IVP ONE (16:15)
[2018-03-10] MEDS ORDERED: Isovue-370 500 ML INFUS..BTL IV ONE (16:20)
--- NOTE | 2018-03-10 16:26 | Emergency Department Note ---
Disposition Clinical Impression: Atrial fibrillation with RVR, Compression fracture, Intractable pain Disposition: Admitted As Inpatient Condition: Fair Referrals: Boubacar Godoy MD [Primary Care Provider] - Forms: ED Satisfaction Letter Time of Disposition: 18:35 General Adult HPI - General Chief complaint: ED Back Pain/Injury Stated complaint: slid off a toilet Time Seen by Provider: 03/10/18 16:03 Source: patient, EMS Limitations: no limitations - History of Present Illness HPI Narrative: This is an 88-year-old female who lives independently at home. She states that she slid off the toilet and landed on the ground. She is complaining of some pain in the lumbar sacral area but she is also having abdominal pain that is occurring before this fall. She states it is going on over 2-3 days. This patient is a poor historian. Pain Scale: 10 - Related Data Home Medications Medication Instructions Recorded Confirmed Albuterol Neb [Proventil Neb] 2.5 mg IH TID PRN 02/12/17 02/12/17 Albuterol Sulfate [Albuterol 2 puff IH Q4H PRN 02/12/17 02/12/17 Inhaler] Aspirin Enteric Coated [Aspirin EC] 81 mg PO DAILY 02/12/17 02/12/17 B Complex with Vitamin C [Melanie-Bee 1 each PO DAILY 02/12/17 02/12/17 with C] Calcium/Magnesium [Calcium with 1 each PO DAILY 02/12/17 02/12/17 Magnesium Tab] Cyanocobalamin (Vitamin B-12) 100 mcg PO DAILY 02/12/17 02/12/17 [Vitamin B-12] Diltiazem HCl [Diltiazem 24Hr Cd] 180 mg PO DAILY 02/12/17 02/12/17 Fluticasone Propionate Nasal 50 mcg NS BID PRN 02/12/17 02/12/17 [Flonase] Fluticasone/Salmeterol [Advair Hfa 2 puff IH BID 02/12/17 02/12/17 115-21 Mcg Inhaler] Metoprolol [Lopressor] 25 mg PO BID 02/12/17 02/12/17 Multivitamin [Multi-Day Vitamins] 1 each PO DAILY 02/12/17 02/12/17 OxyCODONE Immed Rel [Roxicodone 5 5 mg PO Q8HR PRN 02/12/17 02/12/17 MG] Oxygen 3.5 l NS AD 02/12/17 02/12/17 Simvastatin [Zocor] 20 mg PO HS 02/12/17 02/12/17 predniSONE [PredniSONE] 5 mg PO DAILY 02/12/17 02/12/17 Previous Rx's Medication Instructions Recorded Ciprofloxacin/Ciprofloxa HCl 500 mg PO DAILY #1 tbmp.24hr 02/14/17 [Cipro Xr 500 mg Tablet] Ferrous Sulfate 325 mg PO DAILY@0800 #30 tablet 02/14/17 Furosemide [Lasix] 40 mg PO BIDDIURETIC #60 tablet 02/14/17 Sennosides/Docusate Sodium [Senna 2 each PO BID PRN #30 tablet 02/14/17 Plus] Allergies Allergy/AdvReac Type Severity Reaction Status Date / Time Penicillins Allergy Rash Verified 02/12/17 16:23 All systems ED: reviewed and negative except as stated. Constitutional: Denies: fever Cardiovascular: Denies: chest pain Respiratory: Denies: dyspnea Past Medical History - Past Medical History Attestation: Yes The following information was validated with the patient. Medical history: Reports: cancer, CHF, COPD, hypertension, TIA Surgical history: Reports: non-contributory Psychiatric history: Reports: anxiety - Social History Smoking Status: Current every day smoker Smokeless Tobacco Status: No Alcohol use: Reports: none Drug use: Reports: none Physical Exam - General Limitations: no limitations General appearance: alert, in no apparent distress - Head Head exam: atraumatic, normocephalic - Eye Eye exam: Present: PERRL, EOMI - Respiratory Respiratory exam: Present: normal lung sounds bilaterally. Absent: respiratory distress, wheezes - Cardiovascular Cardiovascular exam: Present: regular rate, normal rhythm - Abdominal Exam Abdominal exam: Present: other (Nonspecific tenderness with no rigidity rebound or guarding) - Back Exam Back exam: Present: other (She has some nonspecific tenderness towards the lower lumbar area into the high sacrum. There is no area of point tenderness. No thoracic area tenderness.) - Neurological Exam Neurological exam: Present: alert, oriented X3 - Psychiatric Psychiatric exam: Present: agitated, anxious - Skin Skin exam: Present: warm, dry Course Course Narrative: This patient has lumbar pain since her fall on the floor in the bathroom. Her pain is intractable. She is yelling out. We placed an IV for incremental doses of fentanyl. I taken her up to a total of 150 mics of fentanyl. I think part of the issue is that she appears to be on oxycodone on a daily basis at home for other pain issues and has decreased sensitivity to narcotics from the appearance of it. Aside from her intractable pain she has another issue and appears to be in atrial fibrillation rapid ventricular response so we are starting her on a Cardizem drip and I discussed the case with the hospitalist to arrange for admission. Vital Signs Temperature 98.4 F 03/10/18 15:44 Pulse Rate 114 03/10/18 15:44 Respiratory Rate 18 03/10/18 15:44 Blood Pressure 131/73 03/10/18 15:44 O2 Sat by Pulse Oximetry 95 03/10/18 15:44 Temperature 98.4 F 03/10/18 15:44 Pulse Rate 114 03/10/18 15:44 Respiratory Rate 18 03/10/18 15:44 Blood Pressure 131/73 03/10/18 15:44 O2 Sat by Pulse Oximetry 95 03/10/18 15:44 Oxygen Delivery Oxygen Delivery Nasal Cannula Medical Decision Making - Medical Records Medical records reviewed: Yes I reviewed the patient's medical records. - Lab Data Lab results reviewed: Yes I reviewed the patient's lab results. Result diagrams: 03/10/18 16:15 03/10/18 16:15 Lab Results 03/10/18 03/10/18 Range/Units 16:15 16:15 WBC 28.0 H (4.3-11.1) K/mcL RBC 5.34 H (3.82-4.97) M/mcL Hgb 11.8 (11.5-15.4) g/dL Hct 37.7 (35.3-44.9) % MCV 70.6 L (83.0-100.0) fL MCH 22.1 L (28.0-33.3) pg MCHC 31.3 L (31.6-35.5) g/dL RDW 16.1 H (11.5-14.5) % Plt Count 335 (140-400) K/mcL MPV 9.4 (9.4-12.4) fL Sodium 130 L (136-145) mEq/L Potassium 4.4 (3.5-5.1) mEq/L Chloride 96 L (98-107) mEq/L Carbon Dioxide 25 (23-29) mEq/L BUN 24 H (8-23) mg/dL Creatinine 1.16 (0.60-1.20) mg/dL Est GFR ( Amer) 54 L (> 60) Est GFR (Non-Af Amer) 44 L (> 60) BUN/Creatinine Ratio 21 (6-26) Glucose 242 H (70-105) mg/dL Calculated Osmolality 282 (280-300) Calcium 9.4 (8.6-10.3) mg/dL Total Bilirubin 1.0 (0.3-1.0) mg/dL AST 26 (13-39) Units/L ALT 24 (7-52) Units/L Alkaline Phosphatase 95 (34-104) Units/L Troponin I 0.05 H* (< 0.04) ng/mL Serum Total Protein 6.7 (6.4-8.9) g/dL Albumin 3.0 L (3.5-5.7) g/dL Globulin 3.7 H (2.4-3.5) g/dL Albumin/Globulin Ratio 0.8 L (1.1-2.2) Lipase 3 L (11-82) Units/L - Radiology Data Radiology results reviewed: Yes I reviewed the patient's radiology results. Critical Care Time Critical Care Time: Yes Total Critical Care Time: 30 Attestation: There was a high probability of clearly significant or life-threatening deterioration in the course this patient's care requiring my acute intervention. Total critical care time of 30 minutes exclusive of procedures.
[2018-03-10 16:38] LABS: Hematocrit 37.7 % (35.3-44.9); Hemoglobin 11.8 g/dL (11.5-15.4); Mean Corpuscular HGB Conc 31.3 g/dL (31.6-35.5); Mean Corpuscular Hemoglobin 22.1 pg (28.0-33.3); Mean Corpuscular Volume 70.6 fL (83.0-100.0); Mean Platelet Volume 9.4 fL (9.4-12.4); Platelet Count 335 K/mcL (140-400); Red Blood Count 5.34 M/mcL (3.82-4.97); Red Cell Distribution Width 16.1 % (11.5-14.5)
[2018-03-10 17:06] LABS: Albumin/Globulin Ratio 0.8 (1.1-2.2); Calcium 9.4 mg/dL (8.6-10.3); Globulin 3.7 g/dL (2.4-3.5); Potassium 4.4 mEq/L (3.5-5.1); Total Protein 6.7 g/dL (6.4-8.9)
[2018-03-10 17:16] LABS: Troponin I 0.05 ng/mL (< 0.04)
--- NOTE | 2018-03-10 19:19 | Emergency Department Note ---
START Narrative - START START: I did not see this patient and it was not signed out to me, this is a ED hold patient that was admitted prior to my arrival
--- NOTE | 2018-03-10 21:48 | Internal Med History&Physical ---
<Eusebia Wade - Last Filed: 03/11/18 19:09> Date of Encounter: 03/11/18 Time of Encounter: 21:46 Internal Medicine - H&P: HPI Admitted From: Home History of present illness: Ms. Conrad is a 88 year old female with PMH of CHF, COPD, TIA, hypertension, and lung mass who presents to the emergency department for lumbosacral pain after reportedly sliding off her toilet and landing on the ground. Patient denies passing out before or after she fell. Unfortunately, the patient is a poor historian and gives conflicting answers to the same questions. It is unclear whether the patient fell off the toilet or fell from her bed today because she answers positively to both when asked what brought her to the hospital. She lives alone at home. Her sister is at bedside and helped to provide further information. Patient motions to her lower lumbar and sacral areas when asked where her pain is located and describes the pain as aching. Her lumbosacral pain is chronic, but acutely worse today. She is prescribed Roxicodone 5mg Q8H PRN and reports taking her pain medicine 3 times day. She is also having lower abdominal pain in the suprapubic area and denies dysuria, hematuria, or pyuria. While in the emergency department she was afebrile, tachycardic, SPO2% 90's on 3 L, and her blood pressures were stable. Lab work was significant for leukocytosis of 28, Na 130, leukosis 242, troponin 0.05. CT's of L-spine, abdomen, pelvis were notable for an acute compression fracture of T12, mild left pleural effusion, and infrarenal abdominal aortic aneurysm measuring 3 cm. EKG significant for A. fib with RVR and HR 134. Patient was admitted to the hospitalist service for further evaluation and care of her A. fib with RVR and acute pain. Past Med Surg Social Fam HX - Past Medical History Medical history: cancer, CHF, COPD, hypertension, TIA Psychiatric history: anxiety - Past Surgical History Surgical History: non-contributory - Social History Smoking Status: Current every day smoker Smokeless Tobacco Status: No Alcohol use: none Drug use: none - Family History Father Hx Family Cardiac Disorders: Yes ( from [place]) Internal Medicine - H&P: Meds Albuterol Neb [Proventil Neb] 2.5 mg IH TID PRN 02/12/17 [History] Albuterol Sulfate [Albuterol Inhaler] 2 puff IH Q4H PRN 02/12/17 [History] B Complex with Vitamin C [Melanie-Bee with C] 1 each PO DAILY 02/12/17 [History] Calcium/Magnesium [Calcium with Magnesium Tab] 1 each PO DAILY 02/12/17 [History ] Cyanocobalamin (Vitamin B-12) [Vitamin B-12] 100 mcg PO DAILY 02/12/17 [History] Diltiazem HCl [Diltiazem 24Hr Cd] 180 mg PO DAILY 02/12/17 [History] Fluticasone/Salmeterol [Advair Hfa 115-21 Mcg Inhaler] 2 puff IH BID 02/12/17 [ History] Metoprolol [Lopressor] 25 mg PO BID 02/12/17 [History] OxyCODONE Immed Rel [Roxicodone 5 MG] 5 mg PO Q8HR PRN 02/12/17 [History] Oxygen 3.5 l NS AD 02/12/17 [History] Simvastatin [Zocor] 20 mg PO HS 02/12/17 [History] predniSONE [PredniSONE] 5 - 10 mg PO DAILY PRN 02/12/17 [History] Ferrous Sulfate 325 mg PO DAILY@0800 #30 tablet 02/14/17 [Rx] Furosemide [Lasix] 40 mg PO BIDDIURETIC #60 tablet 02/14/17 [Rx] Sennosides/Docusate Sodium [Senna Plus] 2 each PO BID PRN #30 tablet 02/14/17 [ Rx] Multivitamin [One Daily Essential] 1 tab PO DAILY 03/10/18 [History] 3 Allergy/AdvReac Type Severity Reaction Status Date / Time Penicillins Allergy Rash Verified 02/12/17 16:23 All Systems PM: A 10-system review of systems was performed and is negative for pertinent findings except as documented above in the HPI. - Constitutional Vitals: Temp Pulse Resp BP Pulse Ox 100.0 F H 108 18 146/64 94 03/10/18 21:23 03/10/18 21:23 03/10/18 21:23 03/10/18 21:23 03/10/18 21:23 General appearance: Present: mild distress, A&O X 3, answers questions appropriately - Head Head exam: Present: atraumatic, normocephalic - Eye Eye exam: Present: normal appearance, PERRL Pupils: Present: PERRL - Neck Neck exam general surgery: Present: supple, trachea midline - Respiratory Respiratory exam: Present: CTAB. Absent: rales, rhonchi, wheezes - Cardiovascular Cardiovascular exam: Present: +S1, +S2, tachycardia (regular rhythm) - GI/Abdominal GI/Abdominal exam: Present: soft. Absent: distended, guarding, rebound, rigid, tenderness - Extremities Exam Extremities exam: Present: warm. Absent: cyanotic, pedal edema, tenderness - Back Exam Back exam: Present: paraspinal tenderness (lumbosacral region). Absent: vertebral tenderness (Thoracic ) - Neurological Exam Neurological exam: Present: alert, CN II-XII intact, oriented X3, no focal deficits. Absent: facial droop, speech deficit Internal Med - H&P Results - Labs CBC & Chem 7: 03/11/18 04:48 03/11/18 04:48 - Assessment and plan (1) Atrial fibrillation with RVR Current Visit: Yes Status: Acute Assessment and plan: Atrial fibrillation diagnosed in 2017--cardiology recommended ASA, BB, and didn' t think pt was good candidate for coumadin d/t lung mass with possible metastases Home meds are lopressor and diltiazem Cardizem drip started in the ED, converted on her own before transfer out of ED Plan Continue cardizem gtt for now Restart lopressor for tomorrow AM Cardiac monitoring (2) Intractable pain Current Visit: Yes Status: Acute Assessment and plan: Acute lumbosacral pain Hx of chronic back pain, pt unable to elaborate Pt takes 5 mg roxicodone Q8H at home daily Received total of 150 mcg Fentanyl in ED with minimal relief CT L-spine and abdomen showed acute T12 compression fractured, no traumatic subluxation, mild degenerative changes Suspect a degree of decreased sensitivity to narcotics as result of chronic opioid use Known h/o of lung mass suspicious for cancer--pt declined further evaluation, metastatic workup, or treatment I am concerned for bony metastasis Plan Restart home regimen of roxicodone Consider increasing dose foxicodone to 10 mg Q6H if needed tonight (3) Lung mass Current Visit: Yes Status: Chronic Assessment and plan: As above for "intractable pain" (4) COPD (chronic obstructive pulmonary disease) Current Visit: Yes Status: Chronic Assessment and plan: Continue inhalers Supplemental oxygen by nasal cannula Continuous pulse ox Qualifiers: COPD type: chronic bronchitis Chronic bronchitis type: unspecified Qualified Code(s): J42 - Unspecified chronic bronchitis (5) Chronic pain Current Visit: Yes Status: Chronic Assessment and plan: As above for "intractable pain" Qualifiers: Chronic pain type: other chronic pain Qualified Code(s): G89.29 - Other chronic pain (6) Compression fracture Current Visit: Yes Status: Acute Assessment and plan: Acute T12 compression fracture seen on CT imaging this visit Thoracic spine nontender to palpation - Time Spent With Patient Total time spent is greater than 50% in coordination of care (as documented) at patient's floor/unit and/or counseling patient: <Rula Thapa Ab - Last Filed: 03/12/18 06:46> Date of Encounter: 03/11/18 Internal Medicine - H&P: HPI History of present illness: Ms. Conrad is a 88 year old female All Systems PM: A 10-system review of systems was performed and is negative for pertinent findings except as documented above in the HPI. - Constitutional Vitals: Temp Pulse Resp BP Pulse Ox 99.1 F 92 18 117/69 85 03/12/18 03:51 03/12/18 03:51 03/12/18 03:51 03/12/18 03:51 03/12/18 03:51 Internal Med - H&P Results - Labs CBC & Chem 7: 03/12/18 04:53 03/12/18 04:53 Labs: Short CBC 03/12/18 Range/Units 04:53 WBC 19.1 H (4.3-11.1) K/mcL Hgb 10.0 L (11.5-15.4) g/dL Hct 33.2 L (35.3-44.9) % Plt Count 310 (140-400) K/mcL Neutrophils # 17.6 H (1.6-8.9) K/mcL BMP 03/12/18 04:53 Sodium 132 L Potassium 3.6 Chloride 96 L Carbon Dioxide 26 BUN 29 H Creatinine 1.17 Glucose 173 H Calcium 8.4 L - Impressions ITS Impressions Chest X-Ray 06/27/18 08:54 IMPRESSION: Volume loss to the left lung with leftward mediastinal shift along with dense opacification to the left upper lung zone and blunting of left costophrenic angle, all new since prior exams 02/12/2017. Question if there has been interval partial pneumonectomy since prior 2016, although it would be difficult to exclude superimposed acute process to include pleural effusion and lung parenchymal opacities relating to atelectasis, infiltrates or asymmetric pulmonary edema. Underlying neoplastic process cannot be excluded. Clinical correlation recommended along with continued follow-up. D/ / 03/11/2018 09:25:12 Prasanth Archuleta MD / jim Interpreting Provider: Prasanth Archuleta MD Chest CT 03/11/18 11:03 IMPRESSION: 1. Soft tissue fullness in the left suprahilar region has progressed compared to the previous exam now causing obstruction of the left upper lobe bronchus and complete collapse of the left upper lobe. In addition, a minor focus of cavitation has developed in the left suprahilar region/left upper lobe. The features are compatible with primary lung cancer and PET-CT is recommended for initial evaluation. Tissue sampling also recommended for definitive diagnosis. 2. New moderate left-sided pleural effusion has developed, possibly malignant versus reactive in nature. 3. No other evidence of intrathoracic metastatic disease. There are several small mediastinal lymph nodes which are stable and do not meet CT criteria for lymphadenopathy. 4. Status post cholecystectomy. D/ / Gideon Lopez MD / Gideon Lopez MD Interpreting Provider: Gideon Lopez MD - Attending Attestation I have personally performed the lyons portion of history and physical examination. I discussed these findings,assessment and plans outlined above with the resident, and I agree with the proposed assessment and plan. - Assessment and plan (1) Lung mass Current Visit: Yes Status: Chronic (2) COPD (chronic obstructive pulmonary disease) Current Visit: Yes Status: Chronic Qualifiers: COPD type: chronic bronchitis Chronic bronchitis type: unspecified Qualified Code(s): J42 - Unspecified chronic bronchitis (3) Hypertension Current Visit: Yes Status: Chronic Qualifiers: Hypertension type: essential hypertension Qualified Code(s): I10 - Essential (primary) hypertension (4) Chronic pain Current Visit: Yes Status: Chronic Qualifiers: Chronic pain type: other chronic pain Qualified Code(s): G89.29 - Other chronic pain (5) Rheumatoid arthritis Current Visit: Yes Status: Chronic Qualifiers: Rheumatoid arthritis location: unspecified site Rheumatoid factor presence : unspecified presence Qualified Code(s): M06.9 - Rheumatoid arthritis, unspecified (6) Atrial fibrillation Current Visit: Yes Status: Chronic Qualifiers: Atrial fibrillation type: unspecified Qualified Code(s): I48.91 - Unspecified atrial fibrillation (7) Sepsis Current Visit: Yes Status: Acute Qualifiers: Sepsis type: sepsis due to unspecified organism Qualified Code(s): A41.9 - Sepsis, unspecified organism (8) T12 vertebral fracture Current Visit: Yes Status: Acute Qualifiers: Encounter type: initial encounter Fracture type: closed Fracture morphology: unspecified fracture morphology Qualified Code(s): S22.089A - Unspecified fracture of T11-T12 vertebra, initial encounter for closed fracture (9) CHF (congestive heart failure) Current Visit: Yes Status: Chronic Qualifiers: Heart failure type: diastolic Heart failure chronicity: chronic Qualified Code(s): I50.32 - Chronic diastolic (congestive) heart failure - Time Spent With Patient Total time spent is greater than 50% in coordination of care (as documented) at patient's floor/unit and/or counseling patient:
[2018-03-10] MEDS: *HR* OxyCODONE Immed Rel 5 MG TABLET PO PRN (21:59)
[2018-03-10] MEDS ORDERED: Sennosides/Docusate Sodium TABLET PO PRN (22:12)
[2018-03-10] MEDS ORDERED: Albuterol 2.5 MG/3 ML NEBULIZER IH PRN (22:12)
[2018-03-10] MEDS ORDERED: *HR* Metoprolol 5 MG/5 ML VIAL IVP PRN (23:53)
[2018-03-11] MEDS: Acetaminophen 325 MG TABLET PO PRN ×2 (00:58→15:35)
[2018-03-11 01:00] LABS: Bilirubin,Urine Negative (Negative); Blood,Urine Moderate (Negative); Clarity,Urine Clear (Clear); Color,Urine Dark Yellow (Yellow); Glucose,Urine (UA) Normal (Normal); Ketones,Urine Negative (Negative); Leukocyte Esterase,Urine Negative (Negative); Nitrite,Urine Negative (Negative); PH,Urine 5.5 pH Units (5.0-8.0); Protein,Urine 100 mg/dL (Neg-Trace); Specific Gravity,Urine > 1.030 (1.010-1.025); Urobilinogen,Urine Normal (Normal)
[2018-03-11 01:01] LABS: Squamous Epithelial Cell,Urine Many per lpf (None-Few)
[2018-03-11 01:19] LABS: Bacteria,Urine Few per hpf (None-Few); Hyaline Casts,Urine None Seen per lpf (None-Few); Mucus,Urine Moderate (Few)
[2018-03-11] MEDS: *HR* OxyCODONE Immed Rel 5 MG TABLET PO PRN ×2 (04:07→18:18)
[2018-03-11 05:07] LABS: Basophils % 0.1 %; Hematocrit 34.4 % (35.3-44.9); Hemoglobin 10.5 g/dL (11.5-15.4); Lymphocytes # 0.5 K/mcL (0.6-4.6); Lymphocytes % 1.9 %; Mean Corpuscular HGB Conc 30.5 g/dL (31.6-35.5); Mean Corpuscular Hemoglobin 21.9 pg (28.0-33.3); Mean Corpuscular Volume 71.7 fL (83.0-100.0); Mean Platelet Volume 9.9 fL (9.4-12.4); Monocytes # 1.3 K/mcL (0.0-1.3); Monocytes % 5.1 %; Neutrophils # 22.9 K/mcL (1.6-8.9); Platelet Count 295 K/mcL (140-400); Red Cell Distribution Width 16.1 % (11.5-14.5); Segmented Neutrophils % 91.9 %
[2018-03-11 05:27] LABS: Potassium 4.1 mEq/L (3.5-5.1)
[2018-03-11 06:09] LABS: Anisocytosis 1+ (Not Present); Platelet Estimate Normal (Normal); Toxic Granulation Present (Not Present)
[2018-03-11] MEDS ORDERED: Albuterol 2.5 MG/3 ML NEBULIZER IH PRN (07:13)
--- NOTE | 2018-03-11 08:55 | Internal Med Progress Note ---
Date of Encounter: 03/11/18 Time of Encounter: 11:03 - Assessment and plan (1) Sepsis Current Visit: Yes Status: Acute Assessment and plan: Tmax 100.5, with tachycardia, leukocytosis, suspected UTI Stat CXR noted, will obtain Chest CT Send blood culture Continue Ceftriaxone 2 g daily Add Azithromycin 500mg IV daily Send sputum culture Continue O2 supplement, no IVF indicated at this time Continue to monitor Qualifiers: Sepsis type: sepsis due to unspecified organism Qualified Code(s): A41.9 - Sepsis, unspecified organism (2) T12 vertebral fracture Current Visit: Yes Status: Acute Assessment and plan: Dr. Baron consulted Pain control PTOT eval when pain is better controlled Qualifiers: Encounter type: initial encounter Fracture type: closed Fracture morphology: unspecified fracture morphology Qualified Code(s): S22.089A - Unspecified fracture of T11-T12 vertebra, initial encounter for closed fracture (3) Chronic pain Current Visit: Yes Status: Chronic Assessment and plan: as above Qualifiers: Chronic pain type: other chronic pain Qualified Code(s): G89.29 - Other chronic pain (4) Lung mass Current Visit: Yes Status: Chronic Assessment and plan: patient refused intervention in the past. Follow-up chest CT (5) COPD (chronic obstructive pulmonary disease) Current Visit: Yes Status: Chronic Assessment and plan: daily cough with sputum production Not wheezing at this time duoneb prn no indication for steroids at this time Qualifiers: COPD type: chronic bronchitis Chronic bronchitis type: unspecified Qualified Code(s): J42 - Unspecified chronic bronchitis (6) Rheumatoid arthritis Current Visit: Yes Status: Chronic Assessment and plan: continue pain control Qualifiers: Rheumatoid arthritis location: unspecified site Rheumatoid factor presence : unspecified presence Qualified Code(s): M06.9 - Rheumatoid arthritis, unspecified (7) Atrial fibrillation Current Visit: Yes Status: Chronic Assessment and plan: HR now controlled, continue diltiazem Not on anticoagulation from prior admissions Qualifiers: Atrial fibrillation type: unspecified Qualified Code(s): I48.91 - Unspecified atrial fibrillation (8) Hypertension Current Visit: Yes Status: Chronic Assessment and plan: controlled, continue current meds Qualifiers: Hypertension type: essential hypertension Qualified Code(s): I10 - Essential (primary) hypertension (9) CHF (congestive heart failure) Current Visit: Yes Status: Chronic Assessment and plan: chronic, euvolemic at this time Qualifiers: Heart failure type: diastolic Heart failure chronicity: chronic Qualified Code(s): I50.32 - Chronic diastolic (congestive) heart failure - Time Spent With Patient Total time spent is greater than 50% in coordination of care (as documented) at patient's floor/unit and/or counseling patient: - Subjective Interval history: Patient seen and examined at the bedside H and P is not complete History obtained from the patient , with family at the bedside She reports being in her usual state of health till she fell from her bed prior to presentation Chart review reveals fever, with T max 100.5, associated with HR rangng from 114 on admission to 90 at time of review, she also has leukocytosis She denies urinary symptoms but has been coughing with copious phelgm production on eval Her main complain is low back pain STAT CXR ordered shows Left mediastinal shift, SHARONDA volume loss, suspect pleural effusion, patient has a hx of lung mass for which she does not want intervention She continues to smoke 10 cigarettes daily - Constitutional Vitals: Temp Pulse Resp BP Pulse Ox 98.4 F 85 20 120/54 96 03/11/18 07:38 03/11/18 07:38 03/11/18 07:38 03/11/18 07:38 03/11/18 08:45 General appearance: Present: mild distress, A&O X 3, pleasant - Head Head exam: Present: atraumatic, normocephalic - Eye Eye exam: Present: PERRL, conjuntiva pink, sclera anicteric Pupils: Present: PERRL - Neck Neck exam general surgery: Present: supple, trachea midline. Absent: lymphadenopathy - Respiratory Respiratory exam: Absent: accessory muscle use, rales, rhonchi, wheezes Additional comments: Completely diminshed air entry on the L side - Cardiovascular Cardiovascular exam: Present: RRR, +S1, +S2. Absent: diastolic murmur, gallop, rubs, systolic murmur - GI/Abdominal GI/Abdominal exam: Present: normal bowel sounds, soft, no peritoneal signs. Absent: distended, tenderness - Extremities Exam Extremities exam: Present: warm, radial pulses palpable and symmetrical. Absent : calf tenderness, cyanotic, pedal edema - Back Exam Back exam: Present: vertebral tenderness (L4-L5) - Neurological Exam Neurological exam: Present: alert, CN II-XII intact, oriented X3, no focal deficits. Absent: pronater drift, facial droop, speech deficit - Skin Skin exam: Present: dry, intact Internal Medicine: Result - Labs CBC & Chem 7: 03/11/18 04:48 03/11/18 04:48 Labs: Short CBC 03/11/18 Range/Units 04:48 WBC 24.9 H (4.3-11.1) K/mcL Hgb 10.5 L (11.5-15.4) g/dL Hct 34.4 L (35.3-44.9) % Plt Count 295 (140-400) K/mcL Neutrophils # 22.9 H (1.6-8.9) K/mcL BMP 03/11/18 04:48 Sodium 131 L Potassium 4.1 Chloride 99 Carbon Dioxide 25 BUN 27 H Creatinine 1.13 Glucose 185 H Calcium 9.0 Cardiac Enzymes 03/10/18 03/11/18 Range/Units 23:01 04:48 Troponin I 0.05 H* 0.05 H* (< 0.04) ng/mL Urine 03/11/18 Range/Units 00:46 Urine Color Dark Yellow (Yellow) Urine Clarity Clear (Clear) Urine pH 5.5 (5.0-8.0) pH Units Ur Specific Homer > 1.030 H (1.010-1.025) Urine Protein 100 H (Neg-Trace) mg/dL Urine Glucose (UA) Normal (Normal) mg/dL Consult Discharge Plan - Plan Referrals: Boubacar Godoy MD [Primary Care Provider] - (patient will go to [facility])
[2018-03-11] MEDS ORDERED: *HR* OxyCODONE Immed Rel 5 MG TABLET PO PRN (09:07)
[2018-03-11] MEDS: cefTRIAXone 2,000 MG in Water for inj. (sterile) 20 ML 20 ML IVP SCH (10:12)
[2018-03-11] MEDS: Diltiazem CD (24hr) 180 MG CAPSULE PO SCH (10:12)
[2018-03-11] MEDS: Budesonide/Formoterol 80/4.5 MDI IH SCH ×2 (10:33→20:03)
[2018-03-11] MEDS: Azithromycin 500 MG in D5% in Water 250 ML IVPB SCH (11:50)
--- NOTE | 2018-03-11 12:22 | Electrocardiograph Report ---
[place] [id number] Test Date: 2018-03-10 Pat Name: Patricia Conrad Department: 103 Room: 2A Gender: F Hris Specialist: : 1930 Requested By: Acosta Hu Order Number: [id number] Reading MD: Neo Lawson Measurements Intervals [place] Rate: 134 P: [place]: 0 QRS: 1 QRSD: 89 T: 60 QT: 286 QTc: 365 Interpretive Statements ATRIAL FIBRILLATION WITH RAPID VENTRICULAR RESPONSE Electronically Signed On 03-11-2018 12:21:11 EDT by Neo Lawson
--- NOTE | 2018-03-11 12:25 | Electrocardiograph Report ---
[place] [id number] Test Date: 2018-03-11 Pat Name: Patricia Conrad Department: 112 Room: 2A Gender: F Checker: : 1930 Requested By: [id number] Order Number: [id number] Reading MD: Neo Lawson Measurements Intervals [place] Rate: 106 P: 71 PA: 160 QRS: -31 QRSD: 93 T: 81 QT: 325 QTc: 387 Interpretive Statements SINUS TACHYCARDIA MARKED LEFT AXIS DEVIATION Electronically Signed On 03-11-2018 12:23:35 EDT by Neo Lawson
[2018-03-11] MEDS ORDERED: *HR* OxyCODONE Immed Rel 5 MG TABLET PO ONE (12:28)
[2018-03-11] MEDS: *HR* HYDROmorphone (PF) 1 MG/ML SYRINGE IVP PRN (16:13)
--- NOTE | 2018-03-11 16:13 | Palliative - Consult Note ---
Date of Encounter: 03/11/18 Time of Encounter: 16:10 - Assessment and Plan (1) Intractable back pain Current Visit: Yes Status: Acute Assessment and plan: Patient has had adjustments in her Oxycodone today, but still with excrutiating back pain, and stating "someone has to do something". She is screaming out intermittently. She refuses to speak about anything until her pain is better controlled. Spoke with pharmacy, will order Dilaudid for this evening to try and get her some relief, and discuss again in the am. Continue Oxycodone at the higher dose of 10mg that was ordered earlier, and Dilaudid if ineffective. Spoke with primary nurse Allegra, regarding giving dose of this now to get her some relief. Niece reports she refused kyphoplasty from Dr. Baron (2) Advance care planning Current Visit: Yes Status: Acute Assessment and plan: Although pt is alert and oriented, she is refusing to discuss anything regarding her clinical status until she is more comfortable. Niece, Diane Frost is at bedside, states that pt daughter lives out of state, supposed to be in town Friday. KNows at this time, although she is POA, pt is A/O x3 and is her own decision maker. States that pt has been adamant since lung mass was found last year, that she wanted nothing invasive, and felt she could live longer better if things were left alone. Process has been started for ECF - however, I am concerned regarding future care with the trajectory of her illness , and plan on meeting with POA/pt tomorrow at 1100, hoping we can further discuss. (3) Lung mass Current Visit: Yes Status: Chronic (4) COPD (chronic obstructive pulmonary disease) Current Visit: Yes Status: Chronic Qualifiers: COPD type: chronic bronchitis Chronic bronchitis type: unspecified Qualified Code(s): J42 - Unspecified chronic bronchitis (5) Counseling regarding advanced care planning and goals of care Current Visit: Yes Status: Acute Palliative-CN HPI - Data of Consult Consult date: 03/11/18 Requesting Physician: James Goddard MD Primary Care Provider: Boubacar Godoy MD - Consult Narrative History of present illness: Ms. Conrad is a 88 year old female who presented to the ER after she apparently slid off toilet onto the floor and experienced lumbosacral pain. She has history of lung mass (found about a yr ago), CHF, COPD, TIA, HTN,. Patient is in pain crisis during my visit, and not able to provide history, so HPI taken from niece Diane Frost ARTURO at bedside as well as chart review. Patient apparently refused all workup/treatment after lung mass found last year, and niece states she just wanted to enjoy quality time without the burdens of treatment. As previously stated, she has POA in place. Does have daughter out of state who will be traveling here on Friday. Niece states Dr. Baron offered pt Kyphoplasty foor T12 fracture, and she refused that as well. She was found to have significant Leukocytosis on admission with WBC ? and has had fevers in the 100's [address] admission[address] CT chest demonstrated volume loss of left lung with mediastinal shift and blunting of left costophrenic angle. Pleural effusion and opacities could not be excluded. CT spine demonstrated acute fracture of T12 and 50% loss of vertebral height. Upon my visit, she is agitated and restless, yelling out frequently. She does not desire to speak with me and states, "Somebody has to do something to help this pain" - "If you are not going to do that, get out and I have nothing to say ". Niece is at bedside assisting with information, but pt also asked her to quit speaking and "do something to help me". Her current code status is DNR/ DNI. CC: James Goddard MD Past Med Surg Social Fam HX - Past Medical History Medical history: cancer, CHF, COPD, hypertension, TIA Psychiatric history: anxiety - Past Surgical History Surgical History: non-contributory - Social History Smoking Status: Current every day smoker Smokeless Tobacco Status: No Alcohol use: none Drug use: none - Family History Father Living Status: Hx Family Cardiac Disorders: Yes ( from [place]) Medications and Allergies Albuterol Neb [Proventil Neb] 2.5 mg IH TID PRN 02/12/17 [History] Albuterol Sulfate [Albuterol Inhaler] 2 puff IH Q4H PRN 02/12/17 [History] B Complex with Vitamin C [Melanie-Bee with C] 1 each PO DAILY 02/12/17 [History] Calcium/Magnesium [Calcium with Magnesium Tab] 1 each PO DAILY 02/12/17 [History ] Cyanocobalamin (Vitamin B-12) [Vitamin B-12] 100 mcg PO DAILY 02/12/17 [History] Diltiazem HCl [Diltiazem 24Hr Cd] 180 mg PO DAILY 02/12/17 [History] Fluticasone/Salmeterol [Advair Hfa 115-21 Mcg Inhaler] 2 puff IH BID 02/12/17 [ History] Metoprolol [Lopressor] 25 mg PO BID 02/12/17 [History] OxyCODONE Immed Rel [Roxicodone 5 MG] 5 mg PO Q8HR PRN 02/12/17 [History] Oxygen 3.5 l NS AD 02/12/17 [History] Simvastatin [Zocor] 20 mg PO HS 02/12/17 [History] predniSONE [PredniSONE] 5 - 10 mg PO DAILY PRN 02/12/17 [History] Ferrous Sulfate 325 mg PO DAILY@0800 #30 tablet 02/14/17 [Rx] Furosemide [Lasix] 40 mg PO BIDDIURETIC #60 tablet 02/14/17 [Rx] Sennosides/Docusate Sodium [Senna Plus] 2 each PO BID PRN #30 tablet 02/14/17 [ Rx] Multivitamin [One Daily Essential] 1 tab PO DAILY 03/10/18 [History] 3 Allergy/AdvReac Type Severity Reaction Status Date / Time Penicillins Allergy Rash Verified 02/12/17 16:23 ROS unobtainable: due to mental status (Patient agitated and refuse to participate in ROS r/t severe pain) Palliative Care-Exam - Constitutional Vitals: Temp Pulse Resp BP Pulse Ox 100.1 F H 99 20 130/62 90 03/11/18 15:51 03/11/18 15:51 03/11/18 15:51 03/11/18 15:51 03/11/18 15:51 General appearance: Present: severe distress - Head Head Exam: Present: normal inspection, normocephalic - Eye Eye exam: Present: normal appearance, PERRL - Respiratory Additional comments: Breath sounds greatly diminished left lung tan. Slightly diminished on right lower posterior with faint expiratory wheezes - Cardiovascular Cardiovascular exam: Present: +S1, +S2 - GI/Abdominal Exam GI/Abdominal exam: Present: normal bowel sounds, soft - Extremities Exam Extremities exam: Present: normal capillary refill, normal inspection - Neurological Exam Neurological exam: Present: alert, oriented X3 Additional comments: HA - refusing to follow commands r/t pain with movement - Psychiatric Psychiatric exam: Present: agitated, anxious - Skin Skin exam: Present: dry, pallor, warm Internal Medicine - CN: Reslt - Labs CBC & Chem 7: 03/11/18 04:48 03/11/18 04:48 Labs: Short CBC 03/11/18 Range/Units 04:48 WBC 24.9 H (4.3-11.1) K/mcL Hgb 10.5 L (11.5-15.4) g/dL Hct 34.4 L (35.3-44.9) % Plt Count 295 (140-400) K/mcL Neutrophils # 22.9 H (1.6-8.9) K/mcL BMP 03/11/18 04:48 Sodium 131 L Potassium 4.1 Chloride 99 Carbon Dioxide 25 BUN 27 H Creatinine 1.13 Glucose 185 H Calcium 9.0 Cardiac Enzymes 03/10/18 03/11/18 Range/Units 23:01 04:48 Troponin I 0.05 H* 0.05 H* (< 0.04) ng/mL Urine 03/11/18 Range/Units 00:46 Urine Color Dark Yellow (Yellow) Urine Clarity Clear (Clear) Urine pH 5.5 (5.0-8.0) pH Units Ur Specific [place] > 1.030 H (1.010-1.025) Urine Protein 100 H (Neg-Trace) mg/dL Urine Glucose (UA) Normal (Normal) mg/dL - Impressions Impressions Chest X-Ray 03/11/18 08:54 IMPRESSION: Volume loss to the left lung with leftward mediastinal shift along with dense opacification to the left upper lung zone and blunting of left costophrenic angle, all new since prior exams 02/12/2017. Question if there has been interval partial pneumonectomy since prior 2016, although it would be difficult to exclude superimposed acute process to include pleural effusion and lung parenchymal opacities relating to atelectasis, infiltrates or asymmetric pulmonary edema. Underlying neoplastic process cannot be excluded. Clinical correlation recommended along with continued follow-up. D/ / 03/11/2018 09:25:12 Prasanth Archuleta MD / jim Interpreting Provider: Prasanth Archuleta MD Chest CT 03/11/18 11:03 IMPRESSION: 1. Soft tissue fullness in the left suprahilar region has progressed compared to the previous exam now causing obstruction of the left upper lobe bronchus and complete collapse of the left upper lobe. In addition, a minor focus of cavitation has developed in the left suprahilar region/left upper lobe. The features are compatible with primary lung cancer and PET-CT is recommended for initial evaluation. Tissue sampling also recommended for definitive diagnosis. 2. New moderate left-sided pleural effusion has developed, possibly malignant versus reactive in nature. 3. No other evidence of intrathoracic metastatic disease. There are several small mediastinal lymph nodes which are stable and do not meet CT criteria for lymphadenopathy. 4. Status post cholecystectomy. D/ / Gideon Lopez MD / Gideon Lopez MD Interpreting Provider: Gideon Lopez MD Consult Discharge Plan - Plan Referrals: Boubacar Godoy MD [Primary Care Provider] - (patient will go to [facility]) Palliative Quality Palliative Quality: Screen for Code Status: Yes, Screen for Goals of Care: Yes, Screen for Pain: Yes, If Pain Regimen Started, Initiate Bowel Regimen: Yes, Screen for Nausea/Vomitting: Yes Code Status: 03/11/18 11:04 DNR [Resuscitation Status: Active] [RES] Routine Comment: Resuscitation Status: [id number]
[2018-03-11] MEDS ORDERED: cefTRIAXone 2,000 MG in Water for inj. (sterile) 20 ML 20 ML IVP SCH (18:00)
[2018-03-11] MEDS: Furosemide 40 MG TABLET PO SCH (18:18)
[2018-03-11] MEDS: *HR* LORazepam 2 MG/ML VIAL IVP PRN (18:19)
[2018-03-12 01:24] LABS: Creatinine,Urine 118 mg/dL; Microalbum/Creatinine Ratio,Ur 86 mcg/mg (Less than 30); Microalbumin,Urine 101 mg/L
[2018-03-12] MEDS: *HR* OxyCODONE Immed Rel 5 MG TABLET PO PRN (01:32)
[2018-03-12] MEDS: *HR* LORazepam 2 MG/ML VIAL IVP PRN (01:32)
[2018-03-12 05:16] LABS: Basophils % 0.1 %; Eosinophils % 0.1 %; Hematocrit 33.2 % (35.3-44.9); Immature Granulocytes % 0.9 % (0-4); Lymphocytes # 0.4 K/mcL (0.6-4.6); Mean Corpuscular HGB Conc 30.1 g/dL (31.6-35.5); Mean Corpuscular Hemoglobin 21.4 pg (28.0-33.3); Mean Corpuscular Volume 71.1 fL (83.0-100.0); Mean Platelet Volume 9.8 fL (9.4-12.4); Monocytes # 0.9 K/mcL (0.0-1.3); Monocytes % 4.8 %; Neutrophils # 17.6 K/mcL (1.6-8.9); Platelet Count 310 K/mcL (140-400); Red Blood Count 4.67 M/mcL (3.82-4.97); Red Cell Distribution Width 16.4 % (11.5-14.5); Segmented Neutrophils % 92.1 %
[2018-03-12 05:39] LABS: Calcium 8.4 mg/dL (8.6-10.3); Potassium 3.6 mEq/L (3.5-5.1)
[2018-03-12] MEDS: *HR* HYDROmorphone (PF) 1 MG/ML SYRINGE IVP PRN (06:07)
[2018-03-12] MEDS: Budesonide/Formoterol 80/4.5 MDI IH SCH ×2 (07:35→20:11)
[2018-03-12] MEDS: cefTRIAXone 2,000 MG in Water for inj. (sterile) 20 ML 20 ML IVP SCH (09:10)
[2018-03-12] MEDS: Furosemide 40 MG TABLET PO SCH ×2 (09:11→17:26)
[2018-03-12] MEDS: Diltiazem CD (24hr) 180 MG CAPSULE PO SCH (09:11)
[2018-03-12] MEDS: Multivit/Ca/Min/Fe/FA 1 TAB TABLET PO SCH (09:11)
[2018-03-12] MEDS ORDERED: MORPHINE SUL Oral CONC 10 MG/0.5 ML ORAL.SYG SL PRN (09:43)
[2018-03-12] MEDS ORDERED: *HR* FentaNYL PATCH 25 MCG PATCH TD SCH (09:45)
--- NOTE | 2018-03-12 10:29 | Palliative Progress Note ---
Date of Encounter: 03/12/18 Time of Encounter: 09:35 - Assessment and plan (1) Intractable back pain Current Visit: Yes Status: Acute Assessment and plan: More comfortable this am. Has received 2 doses Hydromorphone and 3 doses Oxycodone since I saw her yesterday. She has also been receiving some Lorazepam for anxiety, so she is somnolent this am. Pain would likely be better controlled with long acting opioid and breakthough if needed. Not sure how long she would be able to continue to swallow oral pills. Will transition to Fentanyl patch to and Roxanol for breakthrough pain. (2) Constipation due to opioid therapy Current Visit: Yes Status: Acute Assessment and plan: She has been having BM's here, however, will need opioids for pain management, and immobility/intake also an issue. Will change Senokot from PRN to scheduled , but will decrease to 1tab BID and monitor. (3) Advance care planning Current Visit: Yes Status: Acute Assessment and plan: ACP meeting with pt niece ARTURO and pt sister Rebecca. Patient already has advanced directives in place. Discussed clinical status and potential further complications. Family is very aware that she has the potential to further decline and prognosis is poor. Now with fracture and limited mobility, she is at greater risk. Discussed code status at length, and ARTURO did transition to DNR -Comfort Care. Discussed hospice at length - she would have to convert to private pay at the [facility]. ARTURO needs to further discuss with pt daughter this evening, pt current plan is for [facility] skilled for as long as [facility] cover, then transition to private pay and hospice if she cannot participate. State form completed and copies provided to family as well as placed on medical record. D/W Dr Goddard and primary nurse Allegra. Will reevaluate pain control in am. (4) Lung mass Current Visit: Yes Status: Chronic (5) COPD (chronic obstructive pulmonary disease) Current Visit: Yes Status: Chronic Qualifiers: COPD type: chronic bronchitis Chronic bronchitis type: unspecified Qualified Code(s): J42 - Unspecified chronic bronchitis (6) Counseling regarding advanced care planning and goals of care Current Visit: Yes Status: Acute - Time Spent With Patient Total time spent is greater than 50% in coordination of care (as documented) at patient's floor/unit and/or counseling patient: - Subjective Interval history: Patient more comfortable this am - drowsy, does awaken easily but drifts back to sleep. Slept well last night per family member at bedside. Appears in no distress. - Constitutional Vitals: Abnormal lab results WBC 19.1 K/mcL (4.3-11.1) H 03/12/18 04:53 Hgb 10.0 g/dL (11.5-15.4) L 03/12/18 04:53 Hct 33.2 % (35.3-44.9) L 03/12/18 04:53 MCV 71.1 fL (83.0-100.0) L 03/12/18 04:53 MCH 21.4 pg (28.0-33.3) L 03/12/18 04:53 MCHC 30.1 g/dL (31.6-35.5) L 03/12/18 04:53 RDW 16.4 % (11.5-14.5) H 03/12/18 04:53 Neutrophils # 17.6 K/mcL (1.6-8.9) H 03/12/18 04:53 Lymphocytes # 0.4 K/mcL (0.6-4.6) L 03/12/18 04:53 Toxic Granulation Present (Not Present) A 03/11/18 04:48 Anisocytosis 1+ (Not Present) A 03/11/18 04:48 Sodium 132 mEq/L (136-145) L 03/12/18 04:53 Chloride 96 mEq/L (98-107) L 03/12/18 04:53 BUN 29 mg/dL (8-23) H 03/12/18 04:53 Est GFR ( Amer) 53 (> 60) L 03/12/18 04:53 Est GFR (Non-Af Amer) 44 (> 60) L 03/12/18 04:53 Glucose 173 mg/dL (70-105) H 03/12/18 04:53 Calcium 8.4 mg/dL (8.6-10.3) L 03/12/18 04:53 Troponin I 0.05 ng/mL (< 0.04) H* 03/11/18 04:48 Albumin 3.0 g/dL (3.5-5.7) L 03/10/18 16:15 Globulin 3.7 g/dL (2.4-3.5) H 03/10/18 16:15 Albumin/Globulin Ratio 0.8 (1.1-2.2) L 03/10/18 16:15 Lipase 3 Units/L (11-82) L 03/10/18 16:15 Ur Specific [place] > 1.030 (1.010-1.025) H 03/11/18 00:46 Urine Protein 100 mg/dL (Neg-Trace) H 03/11/18 00:46 Urine Blood Moderate (Negative) H 03/11/18 00:46 Urine Microscopic RBC 5-15 per hpf (0-3) H 03/11/18 00:46 Urine Microscopic WBC 5-15 per hpf (0-3) H 03/11/18 00:46 Ur Squamous Epith Cells Many per lpf (None-Few) H 03/11/18 00:46 Urine Mucus Moderate (Few) H 03/11/18 00:46 Microalb/Creat Ratio 86 mcg/mg (Less than 30) H 03/12/18 00:30 - Respiratory Additional comments: Left lung tan with diminished breath sounds, right with faint expiratory wheezes - Cardiovascular Cardiovascular exam: Present: +S1, +S2 - GI/Abdominal GI/Abdominal exam: Present: normal bowel sounds, soft - Extremities Exam Extremities exam: Present: normal capillary refill, normal inspection - Neurological Exam Additional comments: Drowsy, alert and oriented to name and place. HA. Can follow very simple commands - Skin Skin exam: Present: dry, pallor, warm Palliative Quality Palliative Quality: Screen for Code Status: Yes, Screen for Goals of Care: Yes, Screen for Pain: Yes, If Pain Regimen Started, Initiate Bowel Regimen: Yes, Screen for Nausea/Vomitting: Yes Code Status: 03/11/18 11:04 DNR [Resuscitation Status: Active] [RES] Routine Comment: Resuscitation Status: [id number] - Labs CBC & Chem 7: 03/12/18 04:53 03/12/18 04:53 Labs: Laboratory Results - last 24 hr 03/12/18 03/12/18 03/12/18 00:30 04:53 04:53 WBC 19.1 H RBC 4.67 Hgb 10.0 L Hct 33.2 L MCV 71.1 L MCH 21.4 L MCHC 30.1 L RDW 16.4 H Plt Count 310 MPV 9.8 Immature Gran % 0.9 Seg Neutrophils % 92.1 Lymphocytes % 2.0 Monocytes % 4.8 Eosinophils % 0.1 Basophils % 0.1 Neutrophils # 17.6 H Lymphocytes # 0.4 L Monocytes # 0.9 Eosinophils # 0.0 Basophils # 0.0 Sodium 132 L Potassium 3.6 Chloride 96 L Carbon Dioxide 26 BUN 29 H Creatinine 1.17 Est GFR ( Amer) 53 L Est GFR (Non-Af Amer) 44 L BUN/Creatinine Ratio 25 Glucose 173 H Calculated Osmolality 284 Calcium 8.4 L Urine Creatinine 118 Urine Microalbumin 101 Microalb/Creat Ratio 86 H - Impressions Impressions Chest X-Ray 03/11/18 08:54 IMPRESSION: Volume loss to the left lung with leftward mediastinal shift along with dense opacification to the left upper lung zone and blunting of left costophrenic angle, all new since prior exams 02/12/2017. Question if there has been interval partial pneumonectomy since prior 2016, although it would be difficult to exclude superimposed acute process to include pleural effusion and lung parenchymal opacities relating to atelectasis, infiltrates or asymmetric pulmonary edema. Underlying neoplastic process cannot be excluded. Clinical correlation recommended along with continued follow-up. D/ / 03/11/2018 09:25:12 Prasanth Archuleta MD / jim Interpreting Provider: Prasanth Archuleta MD Chest CT 03/11/18 11:03 IMPRESSION: 1. Soft tissue fullness in the left suprahilar region has progressed compared to the previous exam now causing obstruction of the left upper lobe bronchus and complete collapse of the left upper lobe. In addition, a minor focus of cavitation has developed in the left suprahilar region/left upper lobe. The features are compatible with primary lung cancer and PET-CT is recommended for initial evaluation. Tissue sampling also recommended for definitive diagnosis. 2. New moderate left-sided pleural effusion has developed, possibly malignant versus reactive in nature. 3. No other evidence of intrathoracic metastatic disease. There are several small mediastinal lymph nodes which are stable and do not meet CT criteria for lymphadenopathy. 4. Status post cholecystectomy. D/ / Gideon Lopez MD / Gideon Lopez MD Interpreting Provider: Gideon Lopez MD Consult Discharge Plan - Plan Referrals: Boubacar Godoy MD [Primary Care Provider] - ([facility] will go to [facility])
--- NOTE | 2018-03-12 11:27 | Internal Med Progress Note ---
Date of Encounter: 03/12/18 Time of Encounter: 11:25 - Assessment and plan (1) Lung mass Current Visit: Yes Status: Chronic Assessment and plan: patient refused intervention in the past. Lung mass has progressed with cavitation L bronchus obstruction and Left liung colapse as well as malignant pleural effusion Patient refuses any intervention Discussion with family about poor prognosis Decision to change to comfort care will be made after meeting with palliative Consider home hospice after rehab (2) COPD (chronic obstructive pulmonary disease) Current Visit: Yes Status: Chronic Assessment and plan: daily cough with sputum production Not wheezing at this time duoneb prn no indication for steroids at this time Qualifiers: COPD type: chronic bronchitis Chronic bronchitis type: unspecified Qualified Code(s): J42 - Unspecified chronic bronchitis (3) Hypertension Current Visit: Yes Status: Chronic Assessment and plan: controlled, continue current meds Qualifiers: Hypertension type: essential hypertension Qualified Code(s): I10 - Essential (primary) hypertension (4) Chronic pain Current Visit: Yes Status: Chronic Assessment and plan: as above Qualifiers: Chronic pain type: other chronic pain Qualified Code(s): G89.29 - Other chronic pain (5) Rheumatoid arthritis Current Visit: Yes Status: Chronic Assessment and plan: continue pain control Qualifiers: Rheumatoid arthritis location: unspecified site Rheumatoid factor presence : unspecified presence Qualified Code(s): M06.9 - Rheumatoid arthritis, unspecified (6) Atrial fibrillation Current Visit: Yes Status: Chronic Assessment and plan: HR now controlled, continue diltiazem Not on anticoagulation from prior admissions Qualifiers: Atrial fibrillation type: unspecified Qualified Code(s): I48.91 - Unspecified atrial fibrillation (7) Sepsis Current Visit: Yes Status: Acute Assessment and plan: Tmax 100.5, with tachycardia, leukocytosis, suspected UTI Chest CT noted Blood culture pending last fever, low grade 100.0 Continue Ceftriaxone 2 g daily Continue Azithromycin 500mg IV daily Sputum culture prelim negative Continue O2 supplement, no IVF indicated at this time Continue to monitor Qualifiers: Sepsis type: sepsis due to unspecified organism Qualified Code(s): A41.9 - Sepsis, unspecified organism (8) T12 vertebral fracture Current Visit: Yes Status: Acute Assessment and plan: Dr. Baron consulted-patient refused intervention Pain control with fentanyl, morphine and dilaudid prn PTOT eval is pending Qualifiers: Encounter type: initial encounter Fracture type: closed Fracture morphology: unspecified fracture morphology Qualified Code(s): S22.089A - Unspecified fracture of T11-T12 vertebra, initial encounter for closed fracture (9) CHF (congestive heart failure) Current Visit: Yes Status: Chronic Assessment and plan: chronic, euvolemic at this time Qualifiers: Heart failure type: diastolic Heart failure chronicity: chronic Qualified Code(s): I50.32 - Chronic diastolic (congestive) heart failure (10) Malignant pleural effusion Current Visit: Yes Status: Acute Assessment and plan: Per CT Patient refused intervention (11) Counseling regarding advanced care planning and goals of care Current Visit: Yes Status: Acute Assessment and plan: Palliative eval appreciated - Time Spent With Patient Total time spent is greater than 50% in coordination of care (as documented) at patient's floor/unit and/or counseling patient: - Subjective Interval history: Patient seen and examined at the bedside Seen and examined at the bedside No new complains Pain is better controlled with oxy 10, dilaudid, patient also on ativan She said to have also declined kaphoplasty Palliative care input appreciated, will be meeting with POA today - Constitutional Vitals: Temp Pulse Resp BP Pulse Ox 100.0 F H 98 18 121/71 88 03/12/18 08:03 03/12/18 08:03 03/12/18 08:03 03/12/18 08:03 03/12/18 09:34 General appearance: Present: A&O X 3, no acute distress, answers questions appropriately - Head Head exam: Present: atraumatic, normocephalic - Eye Eye exam: Present: PERRL, conjuntiva pink, sclera anicteric Pupils: Present: PERRL - Neck Neck exam general surgery: Present: supple, trachea midline. Absent: lymphadenopathy - Respiratory Additional comments: Diminshed air entry L lung zones R with basal crackles - Cardiovascular Cardiovascular exam: Present: RRR, +S1, +S2. Absent: diastolic murmur, gallop, rubs, systolic murmur - GI/Abdominal GI/Abdominal exam: Present: normal bowel sounds, soft, no peritoneal signs. Absent: distended, tenderness - Extremities Exam Extremities exam: Present: warm, radial pulses palpable and symmetrical. Absent : calf tenderness, cyanotic, pedal edema - Neurological Exam Neurological exam: Present: alert, CN II-XII intact, oriented X3, no focal deficits. Absent: pronater drift, facial droop, speech deficit - Skin Skin exam: Present: dry, intact Internal Medicine: Result - Labs CBC & Chem 7: 03/12/18 04:53 03/12/18 04:53 Labs: Short CBC 03/12/18 Range/Units 04:53 WBC 19.1 H (4.3-11.1) K/mcL Hgb 10.0 L (11.5-15.4) g/dL Hct 33.2 L (35.3-44.9) % Plt Count 310 (140-400) K/mcL Neutrophils # 17.6 H (1.6-8.9) K/mcL BMP 03/12/18 04:53 Sodium 132 L Potassium 3.6 Chloride 96 L Carbon Dioxide 26 BUN 29 H Creatinine 1.17 Glucose 173 H Calcium 8.4 L - Impressions Impressions Chest X-Ray 03/11/18 08:54 IMPRESSION: Volume loss to the left lung with leftward mediastinal shift along with dense opacification to the left upper lung zone and blunting of left costophrenic angle, all new since prior exams 02/12/2017. Question if there has been interval partial pneumonectomy since prior 2016, although it would be difficult to exclude superimposed acute process to include pleural effusion and lung parenchymal opacities relating to atelectasis, infiltrates or asymmetric pulmonary edema. Underlying neoplastic process cannot be excluded. Clinical correlation recommended along with continued follow-up. D/ / 03/11/2018 09:25:12 Prasanth Archuleta MD / jim Interpreting Provider: Prasanth Archuleta MD Chest CT 03/11/18 11:03 IMPRESSION: 1. Soft tissue fullness in the left suprahilar region has progressed compared to the previous exam now causing obstruction of the left upper lobe bronchus and complete collapse of the left upper lobe. In addition, a minor focus of cavitation has developed in the left suprahilar region/left upper lobe. The features are compatible with primary lung cancer and PET-CT is recommended for initial evaluation. Tissue sampling also recommended for definitive diagnosis. 2. New moderate left-sided pleural effusion has developed, possibly malignant versus reactive in nature. 3. No other evidence of intrathoracic metastatic disease. There are several small mediastinal lymph nodes which are stable and do not meet CT criteria for lymphadenopathy. 4. Status post cholecystectomy. D/ / Gideon Lopez MD / Gideon Lopez MD Interpreting Provider: Gideon Lopez MD Consult Discharge Plan - Plan Referrals: Boubacar Godoy MD [Primary Care Provider] - (patient will go to [facility])
[2018-03-12] MEDS: Azithromycin 500 MG in D5% in Water 250 ML IVPB SCH (12:14)
[2018-03-12] MEDS: MORPHINE SUL Oral CONC 10 MG/0.5 ML ORAL.SYG SL PRN ×3 (13:34→22:00)
[2018-03-12] MEDS: Sennosides/Docusate Sodium TABLET PO SCH (21:59)
[2018-03-13] MEDS: MORPHINE SUL Oral CONC 10 MG/0.5 ML ORAL.SYG SL PRN ×3 (05:00→13:07)
[2018-03-13] MEDS ORDERED: Azithromycin 250 MG TABLET PO SCH (08:15)
[2018-03-13] MEDS: Furosemide 40 MG TABLET PO SCH (08:45)
[2018-03-13] MEDS: Diltiazem CD (24hr) 180 MG CAPSULE PO SCH (08:45)
[2018-03-13] MEDS: Sennosides/Docusate Sodium TABLET PO SCH (08:45)
[2018-03-13] MEDS: Multivit/Ca/Min/Fe/FA 1 TAB TABLET PO SCH (08:45)
[2018-03-13] MEDS ORDERED: Cefdinir 300 MG CAPSULE PO SCH (09:00)
--- NOTE | 2018-03-13 09:39 | Palliative Progress Note ---
Date of Encounter: 03/13/18 Time of Encounter: 09:25 - Assessment and plan (1) Intractable back pain Current Visit: Yes Status: Acute Assessment and plan: Continue Fentanyl patch at 25mc with Roxanol for breakthrough pain. Has utilized Roxanol x4 last 24 hours. (2) Constipation due to opioid therapy Current Visit: Yes Status: Acute Assessment and plan: Continue scheduled bowel regimen r/t opioid therapy, immobility, and decreased fluid intake. (3) Advance care planning Current Visit: Yes Status: Acute Assessment and plan: Dr. Goddard states pt could be discharged today on oral antibiotics to ECF. Notified bilingual social worker. Completed prescriptions for Fentanyl, Roxanol, and Lorazepam for ECF transfer. DNRCC state form was completed yesterday. (4) Lung mass Current Visit: Yes Status: Chronic (5) COPD (chronic obstructive pulmonary disease) Current Visit: Yes Status: Chronic Qualifiers: COPD type: chronic bronchitis Chronic bronchitis type: unspecified Qualified Code(s): J42 - Unspecified chronic bronchitis (6) Counseling regarding advanced care planning and goals of care Current Visit: Yes Status: Acute - Time Spent With Patient Total time spent is greater than 50% in coordination of care (as documented) at patient's floor/unit and/or counseling patient: - Subjective Interval history: Patient awake and alert, states she is still having pain 04/24,, but was just medicated. Does appear in less distress, and able to communicate. She is not eating well, continues to have moist productive cough. Sister at bedside. Dr. Goddard just in and plans on possible discharge today. - Constitutional Vitals: Abnormal lab results WBC 19.1 K/mcL (4.3-11.1) H 03/12/18 04:53 Hgb 10.0 g/dL (11.5-15.4) L 03/12/18 04:53 Hct 33.2 % (35.3-44.9) L 03/12/18 04:53 MCV 71.1 fL (83.0-100.0) L 03/12/18 04:53 MCH 21.4 pg (28.0-33.3) L 03/12/18 04:53 MCHC 30.1 g/dL (31.6-35.5) L 03/12/18 04:53 RDW 16.4 % (11.5-14.5) H 03/12/18 04:53 Neutrophils # 17.6 K/mcL (1.6-8.9) H 03/12/18 04:53 Lymphocytes # 0.4 K/mcL (0.6-4.6) L 03/12/18 04:53 Toxic Granulation Present (Not Present) A 03/11/18 04:48 Anisocytosis 1+ (Not Present) A 03/11/18 04:48 Sodium 132 mEq/L (136-145) L 03/12/18 04:53 Chloride 96 mEq/L (98-107) L 03/12/18 04:53 BUN 29 mg/dL (8-23) H 03/12/18 04:53 Est GFR ( Amer) 53 (> 60) L 03/12/18 04:53 Est GFR (Non-Af Amer) 44 (> 60) L 03/12/18 04:53 Glucose 173 mg/dL (70-105) H 03/12/18 04:53 Calcium 8.4 mg/dL (8.6-10.3) L 03/12/18 04:53 Troponin I 0.05 ng/mL (< 0.04) H* 03/11/18 04:48 Albumin 3.0 g/dL (3.5-5.7) L 03/10/18 16:15 Globulin 3.7 g/dL (2.4-3.5) H 03/10/18 16:15 Albumin/Globulin Ratio 0.8 (1.1-2.2) L 03/10/18 16:15 Lipase 3 Units/L (11-82) L 03/10/18 16:15 Ur Specific [place] > 1.030 (1.010-1.025) H 03/11/18 00:46 Urine Protein 100 mg/dL (Neg-Trace) H 03/11/18 00:46 Urine Blood Moderate (Negative) H 03/11/18 00:46 Urine Microscopic RBC 5-15 per hpf (0-3) H 03/11/18 00:46 Urine Microscopic WBC 5-15 per hpf (0-3) H 03/11/18 00:46 Ur Squamous Epith Cells Many per lpf (None-Few) H 03/11/18 00:46 Urine Mucus Moderate (Few) H 03/11/18 00:46 Microalb/Creat Ratio 86 mcg/mg (Less than 30) H 03/12/18 00:30 General appearance: Present: no acute distress - Respiratory Additional comments: Breath sounds decreased left chest. - Cardiovascular Cardiovascular exam: Present: +S1, +S2 - GI/Abdominal GI/Abdominal exam: Present: normal bowel sounds, soft - Extremities Exam Extremities exam: Present: normal capillary refill, normal inspection - Neurological Exam Neurological exam: Present: alert, oriented X3 Additional comments: Strength equal to upper extremities, she has increased pain when moving lower extremities and refuses that part of exam. - Skin Skin exam: Present: dry, pallor, warm Palliative Quality Palliative Quality: Screen for Code Status: Yes, Screen for Goals of Care: Yes, Screen for Pain: Yes, If Pain Regimen Started, Initiate Bowel Regimen: Yes, Screen for Nausea/Vomitting: Yes Code Status: 03/11/18 11:04 DNR [Resuscitation Status: Active] [RES] Routine Comment: Resuscitation Status: [id number] 03/12/18 13:02 DNR [Resuscitation Status: Active] [RES] Routine Comment: Resuscitation Status: DNR-Comfort Care - Labs CBC & Chem 7: 03/12/18 04:53 03/12/18 04:53 Consult Discharge Plan - Plan Referrals: Boubacar Godoy MD [Primary Care Provider] - (patient will go to [facility]) Prescriptions: FentaNYL PATCH [Duragesic] 1 each TD Q72H 30 Days #10 patch.td72 LORazepam [Ativan] 0.5 mg PO BID 30 Days #60 tablet MORPHINE SUL Oral CONC [Roxanol Oral Conc] 10 mg PO Q3H PRN 14 Days #30 oral.syg PRN Reason: Breakthrough Pain
[2018-03-13] MEDS: Budesonide/Formoterol 80/4.5 MDI IH SCH (10:57)
--- NOTE | 2018-03-13 11:38 | Discharge Summary ---
- NOTES TO OUTPATIENT PROVIDER Notes to Outpatient Provider: 88-year-old female with history of lung mass has refused intervention, COPD, chronic respiratory failure on home oxygen, rheumatoid arthritis, presented with fall and vertebral fracture, incidental finding of sepsis secondary to possible postobstructive pneumonia, palliative care has been consulted in this state due to patient's progression of the lung mass associated with left lung collapse and malignant pleural effusion. The patient has opted for no intervention, no invasive measures. She has been afebrile for the past 24 hours and is discharged on Omnicef and azithromycin for pneumonia. She has been started on pain control, and anxiety medications. Orders not resulted at time of discharge: Pending orders 03/11/18 09:27 Culture,Blood [BC] Stat 03/11/18 15:00 Sputum Culture [Culture,Sputum with Gram Stain] [RM] Stat Date of Encounter: 03/13/18 Time of Encounter: 11:38 - Discharge Diagnosis (1) Lung mass Priority: Secondary Status: Chronic (2) COPD (chronic obstructive pulmonary disease) Priority: Primary Status: Chronic Qualifiers: COPD type: chronic bronchitis Chronic bronchitis type: unspecified Qualified Code(s): J42 - Unspecified chronic bronchitis (3) Hypertension Priority: Secondary Status: Chronic Qualifiers: Hypertension type: essential hypertension Qualified Code(s): I10 - Essential (primary) hypertension (4) Chronic pain Priority: Secondary Status: Chronic Qualifiers: Chronic pain type: other chronic pain Qualified Code(s): G89.29 - Other chronic pain (5) Rheumatoid arthritis Priority: Secondary Status: Chronic Qualifiers: Rheumatoid arthritis location: unspecified site Rheumatoid factor presence : unspecified presence Qualified Code(s): M06.9 - Rheumatoid arthritis, unspecified (6) Atrial fibrillation Priority: Secondary Status: Chronic Qualifiers: Atrial fibrillation type: unspecified Qualified Code(s): I48.91 - Unspecified atrial fibrillation (7) Sepsis Priority: Primary Status: Acute Qualifiers: Sepsis type: sepsis due to unspecified organism Qualified Code(s): A41.9 - Sepsis, unspecified organism (8) T12 vertebral fracture Priority: Primary Status: Acute Qualifiers: Encounter type: initial encounter Fracture type: closed Fracture morphology: unspecified fracture morphology Qualified Code(s): S22.089A - Unspecified fracture of T11-T12 vertebra, initial encounter for closed fracture (9) CHF (congestive heart failure) Priority: Secondary Status: Chronic Qualifiers: Heart failure type: diastolic Heart failure chronicity: chronic Qualified Code(s): I50.32 - Chronic diastolic (congestive) heart failure (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 (11) Counseling regarding advanced care planning and goals of care Priority: Primary Status: Acute Hospital course: Ms. Conrad is a 88 year old female with past medical history of chronic respiratory failure on home oxygen, COPD, tobacco abuse, lung mass diagnosed in 01/2017, atrial fibrillation, hypertension. Presented to this facility following a fall from her bed with acute T12 vertebral fracture and sepsis. Sepsis is due to postobstructive pneumonia. The patient presented with a MAXIMUM TEMPERATURE of 100.5 associated with tachycardia and leukocytosis suspected urinary tract infection and postobstructive pneumonia. She was managed with ceftriaxone 2 g daily, azithromycin 500 mg daily and oxygen supplement. Spine surgery was consulted for the T12 vertebral fracture but the patient refuses kyphoplasty any formal intervention. Chest CT shows malignant left pleural effusion associated with lung collapse, cavitary lesion with progression of the lung mass and complete obstruction of the lobe bronchus. The patient continues to refuse intervention. Pain control was initiated by palliative care with fentanyl and morphine. CODE STATUS was changed to DO NOT RESUSCITATE Comfort Care only. The patient was seen and examined this morning at the bedside with family members, she is awake and able to put spittoon a meaningful conversation, she continues to refuse intervention for the diagnosis of suspected malignancy. Family and patient directly to be transferred to residential facility for continued management. Transfer to hospice in the near future is an option. Complete antibiotics for at least 5 days. Plan of care discussed with the patient and family members verbalized understanding. 3 minutes spent on tobacco cessation counseling. Discharge discussed with: patient, family, nurse, social work, method consultant Time spent discussing smoking cessation with patient: 3 to 10 minutes - Time Spent with Patient Total time spent providing and/or coordinating discharge services: Greater than 30 minutes - Discharge Medications Prescriptions: FentaNYL PATCH [Duragesic] 1 each TD Q72H 30 Days #10 patch.td72 LORazepam [Ativan] 0.5 mg PO BID 30 Days #60 tablet MORPHINE SUL Oral CONC [Roxanol Oral Conc] 10 mg PO Q3H PRN 14 Days #30 oral.syg PRN Reason: Breakthrough Pain Home Medications: Albuterol Neb [Proventil Neb] 2.5 mg IH TID PRN 02/12/17 [History] Albuterol Sulfate [Albuterol Inhaler] 2 puff IH Q4H PRN 02/12/17 [History] B Complex with Vitamin C [Melanie-Bee with C] 1 each PO DAILY 02/12/17 [History] Calcium/Magnesium [Calcium with Magnesium Tab] 1 each PO DAILY 02/12/17 [History ] Cyanocobalamin (Vitamin B-12) [Vitamin B-12] 100 mcg PO DAILY 02/12/17 [History] Diltiazem HCl [Diltiazem 24Hr Cd] 180 mg PO DAILY 02/12/17 [History] Fluticasone/Salmeterol [Advair Hfa 115-21 Mcg Inhaler] 2 puff IH BID 02/12/17 [ History] Metoprolol [Lopressor] 25 mg PO BID 02/12/17 [History] Oxygen 3.5 l NS AD 02/12/17 [History] Simvastatin [Zocor] 20 mg PO HS 02/12/17 [History] predniSONE [PredniSONE] 5 - 10 mg PO DAILY PRN 02/12/17 [History] Ferrous Sulfate 325 mg PO DAILY@0800 #30 tablet 02/14/17 [Rx] Furosemide [Lasix] 40 mg PO BIDDIURETIC #60 tablet 02/14/17 [Rx] Sennosides/Docusate Sodium [Senna Plus] 2 each PO BID PRN #30 tablet 02/14/17 [ Rx] Multivitamin [One Daily Essential] 1 tab PO DAILY 03/10/18 [History] Acetaminophen [Tylenol] 650 mg PO Q6HR PRN tablet 03/13/18 [Rx] Azithromycin [Zithromax] 500 mg PO Q24H tablet 03/13/18 [Rx] Cefdinir [Omnicef] 300 mg PO BID capsule 03/13/18 [Rx] FentaNYL PATCH [Duragesic] 1 each TD Q72H 30 Days #10 patch.td72 03/13/18 [Rx] LORazepam [Ativan] 0.5 mg PO BID 30 Days #60 tablet 03/13/18 [Rx] MORPHINE SUL Oral CONC [Roxanol Oral Conc] 10 mg PO Q3H PRN 14 Days #30 oral.syg 03/13/18 [Rx] Allergies/Adverse Reactions: 3 Allergy/AdvReac Type Severity Reaction Status Date / Time Penicillins Allergy Rash Verified 02/12/17 16:23 Date of admission: 03/10/18 20:22 Primary care physician: Boubacar Godoy MD Consults: 03/10/18 22:27 Consult to Lidar Technician [CONS] Routine Reason for SW Consult: From Home Alone; Nephew comes by daily to help; No home services 03/11/18 09:29 Consult to Occupational Therapy [CONS] Routine Comment: Evaluate, develop and implement POC Reason for Consult: eval for ecf, needs pre-cert Does patient have active BEDREST order?: No Is patient medically & hemodynamically stable?: Yes Consult to Physical Therapy [CONS] Routine Comment: Evaluate, develop and implement POC Reason for Consult: eval for ecf, needs pre-cert Does patient have active BEDREST order?: No Is patient medically & hemodynamically stable?: Yes 03/11/18 11:17 Consult to Orthopedic Surgery [CONS] Stat Consulting Provider: Orthopedic and Sports Medicine Reason for Consult: Acute T12 vertebral fracture Call Completed: Yes 03/11/18 15:29 Consult to Palliative Care [CONS] Routine Comment: Consulting Provider: Palliative Care Mavis Reason for Consult: Goals of care, pain control Call Completed: No Discharging clinician: James Goddard Anticipated date of discharge: 03/13/18 - Constitutional Vitals: Temp Pulse Resp BP Pulse Ox 98.7 F 107 18 120/72 92 03/13/18 06:55 03/13/18 06:55 03/13/18 10:57 03/13/18 06:55 03/13/18 10:57 General appearance: Present: mild distress, A&O X 3, pleasant, answers questions appropriately - Head Head exam: Present: atraumatic, normocephalic - Eye Eye exam: Present: PERRL, conjuntiva pink, sclera anicteric Pupils: Present: PERRL - Neck Neck exam general surgery: Present: supple, trachea midline. Absent: lymphadenopathy - Respiratory Additional comments: Diminshed air entry LL Right lung with basal rales - Cardiovascular Cardiovascular exam: Present: RRR, +S1, +S2. Absent: diastolic murmur, gallop, rubs, systolic murmur - GI/Abdominal GI/Abdominal exam: Present: normal bowel sounds, soft, no peritoneal signs. Absent: distended, tenderness - Extremities Exam Extremities exam: Present: warm, radial pulses palpable and symmetrical. Absent : calf tenderness, cyanotic, pedal edema - Neurological Exam Neurological exam: Present: alert, CN II-XII intact, oriented X3, no focal deficits. Absent: pronater drift, facial droop, speech deficit - Skin Skin exam: Present: dry, intact - Patient Status Disposition: Transfer SNF Condition: Fair Functional capacity at discharge: bed bound Overall status at discharge: patient is progressing back to baseline - Discharge Instructions Follow Up With: Boubacar Godoy MD [Primary Care Provider] - (patient will go to [facility]) - Diet and Activity Activity: as per physical therapy, wear oxygen at all times Diet: low fat, low cholesterol, low salt diet
--- NOTE | 2018-03-13 11:49 | Physician Discharge Referral ---
ExtendedCare Referral Info Transfer To: SNF Provider in Charge: Kathrin Goddard Provider in Charge after Transfer: PCP Institutional Level of Care: Skilled - Diagnosis (1) Lung mass Priority: Secondary Status: Chronic (2) COPD (chronic obstructive pulmonary disease) Priority: Secondary Status: Chronic (3) Hypertension Priority: Secondary Status: Chronic (4) Chronic pain Priority: Secondary Status: Chronic (5) Rheumatoid arthritis Priority: Secondary Status: Chronic (6) Atrial fibrillation Priority: Secondary Status: Chronic (7) Sepsis Priority: Primary Status: Acute (8) T12 vertebral fracture Priority: Primary Status: Acute (9) CHF (congestive heart failure) Priority: Secondary Status: Chronic (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 (11) Counseling regarding advanced care planning and goals of care Priority: Primary Status: Acute Prognosis: Poor Aware of Diagnosis: Patient, Family Aware of Prognosis: Patient, Family - Transfer Medications Prescriptions: FentaNYL PATCH [Duragesic] 1 each TD Q72H 30 Days #10 patch.td72 LORazepam [Ativan] 0.5 mg PO BID 30 Days #60 tablet MORPHINE SUL Oral CONC [Roxanol Oral Conc] 10 mg PO Q3H PRN 14 Days #30 oral.syg PRN Reason: Breakthrough Pain Home Medications: Albuterol Neb [Proventil Neb] 2.5 mg IH TID PRN 02/12/17 [History] Albuterol Sulfate [Albuterol Inhaler] 2 puff IH Q4H PRN 02/12/17 [History] B Complex with Vitamin C [Melanie-Bee with C] 1 each PO DAILY 02/12/17 [History] Calcium/Magnesium [Calcium with Magnesium Tab] 1 each PO DAILY 02/12/17 [History ] Cyanocobalamin (Vitamin B-12) [Vitamin B-12] 100 mcg PO DAILY 02/12/17 [History] Diltiazem HCl [Diltiazem 24Hr Cd] 180 mg PO DAILY 02/12/17 [History] Fluticasone/Salmeterol [Advair Hfa 115-21 Mcg Inhaler] 2 puff IH BID 02/12/17 [ History] Metoprolol [Lopressor] 25 mg PO BID 02/12/17 [History] Oxygen 3.5 l NS AD 02/12/17 [History] Simvastatin [Zocor] 20 mg PO HS 02/12/17 [History] predniSONE [PredniSONE] 5 - 10 mg PO DAILY PRN 02/12/17 [History] Ferrous Sulfate 325 mg PO DAILY@0800 #30 tablet 02/14/17 [Rx] Furosemide [Lasix] 40 mg PO BIDDIURETIC #60 tablet 02/14/17 [Rx] Sennosides/Docusate Sodium [Senna Plus] 2 each PO BID PRN #30 tablet 02/14/17 [ Rx] Multivitamin [One Daily Essential] 1 tab PO DAILY 03/10/18 [History] Acetaminophen [Tylenol] 650 mg PO Q6HR PRN tablet 03/13/18 [Rx] Azithromycin [Zithromax] 500 mg PO Q24H tablet 03/13/18 [Rx] Cefdinir [Omnicef] 300 mg PO BID capsule 03/13/18 [Rx] FentaNYL PATCH [Duragesic] 1 each TD Q72H 30 Days #10 patch.td72 03/13/18 [Rx] LORazepam [Ativan] 0.5 mg PO BID 30 Days #60 tablet 03/13/18 [Rx] MORPHINE SUL Oral CONC [Roxanol Oral Conc] 10 mg PO Q3H PRN 14 Days #30 oral.syg 03/13/18 [Rx] Allergies/Adverse Reactions: 3 Allergy/AdvReac Type Severity Reaction Status Date / Time Penicillins Allergy Rash Verified 02/12/17 16:23 - Respiratory Orders Oxygen / L per min (3-4 L per minute) Smoking Cessation: Smoking cessation has been advised. For more information, call the [place] Tobacco Quit Line at 2-249-CJPG-NOW. - Advance Directives Code Status: DNR-Comfort Care - Mobility Orders Other (per PT) - Rehabiliation Orders Rehab Potential: Fair Rehab Orders: Evaluation for Physical Therapy, Evaluation for Occupational Therapy - Diet Orders Cardiac CERTIFICATION: I certify that the transfer of the above named patient to an Extended Care Facility is necessary for the continuing treatment of the diagnosis listed. The above information is true and accurate reflection of patient's current condition. Confidential - Redisclosure prohibited without a patient's written consent.
[2018-03-13 11:59] VITALS: BP 118/72
[2018-03-14] MEDS ORDERED: Azithromycin 250 MG TABLET PO SCH (12:00)
== END 2018-03-13 13:26 ==
LOC: 2ANU 15:37 → EMEROO 15:37 → SUATTDRO 20:22 → 2ANU 20:45
PROVIDERS: ADMIT Internal Medicine; ATTEND Internal Medicine